=== PATIENT | male | born 1955 | race Caucasian/White ===

== ENCOUNTER → 2020-02-08 07:57 | Outpatient (BNVA) | payer MEDICARE, OTHER, SELFPAY | PROVIDERS: Absent Provider Urology; Family Provider Family Medicine; PCP Family Medicine; Visit Provider Urology | DX: N45.1 Epididymitis (principal); N48.6 Induration penis plastica | CPT/HCPCS: 81003 ==

== ENCOUNTER 2020-03-01 07:14 | Outpatient (CLI) | payer MEDICARE, OTHER, SELFPAY ==
--- NOTE | 2020-03-01 07:18 | US_ITS ---
WS: [id number] ULTRASOUND ABDOMEN CLINICAL INFORMATION: EPIGASTRIC PAIN COMPARISON: None. FINDINGS: Liver Size: Enlarged Craniocaudal length: 17.2 cm. Echogenicity: Normal. Surface nodularity: None. Mass (size and location): None. Bile ducts Intrahepatic ducts: Normal. Common bile duct diameter: 0.3 cm. Gallbladder Normal. Gallstones: None. Gallbladder sludge: None. Gallbladder wall thickening: None. Pericholecystic fluid: None. Sonographic Barbosa sign: Absent. Pancreas Normal as visualized. Spleen Splenomegaly: None. Craniocaudal length: 9.1 cm. Right kidney: Small simple renal cyst measuring 6 mm Hydronephrosis: None. Size: 12.9 cm x 6.4 cm x 6.3 cm Left kidney: Simple renal cyst measuring 1.6 x 1.4 cm. Additional smaller 11 mm renal cyst Hydronephrosis: None. Size: 13.2 cm x 5.1 cm x 6.3 cm. Abdominal aorta and IVC Visualized portions are normal. Umbilical hernia measuring 1.1 x 1.2 CCM. US/US abdomen complete* [id number] IMPRESSION: 1. Hepatomegaly. 2. Normal gallbladder. 3. No hydronephrosis in either kidney. Incidental small simple cysts bilateral ly. 4. Normal spleen. 5. Umbilical hernia measuring 1.1 x 1.2 CM. Recommend clinical correlation. Th is can be further evaluated with CT.
== END 2020-03-01 07:15 | disposition home or self-care (01) ==
PROVIDERS: PCP Family Medicine; Visit Provider Nurse Practitioner Family
DX: R10.13 Epigastric pain (principal); R07.9 Chest pain, unspecified; R16.0 Hepatomegaly, not elsewhere classified; K42.9 Umbilical hernia without obstruction or gangrene
CPT/HCPCS: 76700

== ENCOUNTER → 2020-07-18 08:01 | Outpatient (BNVA) | payer MEDICARE, OTHER, SELFPAY | PROVIDERS: PCP Family Medicine; Visit Provider Urology | DX: N45.1 Epididymitis (principal); N50.819 Testicular pain, unspecified; N48.6 Induration penis plastica | CPT/HCPCS: 81003 ==

== ENCOUNTER → 2021-07-21 13:02 | Outpatient (BNVA) | payer MEDICARE, OTHER, SELFPAY | PROVIDERS: PCP Family Medicine; Visit Provider Urology | DX: N48.6 Induration penis plastica (principal); Z12.5 Encounter for screening for malignant neoplasm of prostate; N50.819 Testicular pain, unspecified | CPT/HCPCS: 81003; G0103 ==

== ENCOUNTER 2022-06-20 03:21 | Inpatient (IN) | payer MEDICARE, OTHER, SELFPAY ==
[2022-06-20] VITALS (89 sets, daily range): BP systolic 57–157; BP diastolic 36–95; PULSE 31–103; RESP 10–30; TEMP 36.5–37.1; O2SAT 94–100; BMI 22.8; BMI 29.7
--- NOTE | 2022-06-20 03:33 | ECG_ITS ---
[facility] Test Date: 2022-06-20 Pat Name: Chau Jarquin Department: Room: Gender: Male Crimper Operator: : 1955 Requested By: Kirit Dougherty Order Number: [id number] Bruno MD: Parvez Salter M.D. Measurements Intervals [place] Rate: 72 P: 68 ID: [id number] QRS: 54 QRSD: 88 T: 87 QT: 376 QTc: 414 Interpretive Statements SINUS RHYTHM WITH FIRST DEGREE AV BLOCK LOW QRS VOLTAGE IN PRECORDIAL LEADS [QRS DEFLECTION < 1.0 mV IN CHEST LEADS] MARKED ST ELEVATION, CONSIDER INFERIOR INJURY [MARKED ST ELEVATION W/O NORMALLY INFLECTED T-WAVE IN II/aVF] ACUTE NC No previous ECG available for comparison Electronically Signed On 06-20-2022 15:24:25 CDT by Parvez Salter M.D. [email or web address]
--- NOTE | 2022-06-20 03:38 | XRR_ITS ---
PROCEDURE INFORMATION: Exam: XR Chest Exam date and time: 06/20/2022 3:47 AM Age: 67 years old Clinical indication: Pain; Chest pressure; Patient HX: Stemi; Additional info: Cp TECHNIQUE: Imaging protocol: Radiologic exam of the chest. Views: 1 view. COMPARISON: No relevant prior studies available. FINDINGS: Lungs: There is no consolidation. Pleural spaces: There is no pleural effusion or pneumothorax. Heart/Mediastinum: There is mild enlargement of the cardiac silhouette. Bones/joints: Bones are unremarkable. XR/XR chest 1V portable [id number] IMPRESSION: No acute findings.
--- NOTE | 2022-06-20 03:44 | W.ED.CHESTPA ---
HPI - Chest Pain General: Chief Complaint: Chest Pain Stated Complaint: CP, low bp Time Seen by Provider: 06/20/22 03:29 Source: patient and family History of Present Illness: 67-year-old gentleman with a history of diabetes and hypertension. He notes that he did not really feel well around 530 last evening. He had some chest discomfort, and fatigue. This seemed to improve, and he went out to his shop later the last night. He came in around 2 AM and reported to his that he felt like his blood sugar was low . He was tired, having some chest discomfort, and short of breath. He currently rates his discomfort as a 5. He notes that it is significantly improved from prior. MD complaint: chest discomfort Pertinent past history: other Onset (ago): hour(s) Timing of current episode: episodic Prior episodes: Yes Onset: during rest Pain location: substernal Pain radiation: none Quality: aching and heaviness Relieving factors: nothing Exacerbating factors: nothing Associated symptoms: Reports diaphoresis, dyspnea and nausea; Deny abdominal pain, fever(s), leg edema or vomiting Treatment prior to arrival: none Risk Factors: Coronary artery disease risk factors: diabetes and hypertension Review of Systems Const: Reports: diaphoresis; Denies: fever(s) Eyes: Denies: change in vision Card: Reports: chest pain Resp: Reports: dyspnea GI: Reports: nausea; Denies: abdominal pain or vomiting Skin/Breast: Denies: rash PFSH ED PFSH: Medical History DM2 (diabetes mellitus, type 2) Epididymal pain Epididymitis Erectile dysfunction HTN (hypertension) Peyronie's Disease Surgical History Hx of vasectomy Family History Other CAD (coronary artery disease) Cancer Hypertension Social History Smoking and tobacco status: never smoked Alcohol intake: current Alcohol intake frequency: few times a week Adopted: No Caregiver/support person: No Lives independently: No Household members: spouse Marital status: Current occupational status: retired Physical Exam Const: GENERAL APPEARANCE: cooperative, in distress and ill appearing HENMT: COMMON NORMALS: normocephalic, atraumatic and Normal external nose present HEAD & SCALP: normocephalic and atraumatic NOSE: Normal external nose present Eye: COMMON NORMALS: Equal, round and reactive pupils present and EOMs intact bilaterally PUPIL: Yes Equal, round and reactive pupils present Neck/C-Spine: GENERAL: Yes trachea midline Chest: COMMONS NORMALS: normal inspection of the chest CHEST: Yes Symmetrical chest wall rise Resp: COMMON NORMALS: normal respiratory effort, No use of accessory muscles and clear to auscultation bilaterally AUSCULTATION: clear to auscultation bilaterally Cardio: COMMON NORMALS: regular rhythm RATE: bradycardic RHYTHM: regular rhythm GI: COMMON NORMALS: Normal to inspection, nondistended, normoactive bowel sounds present, Soft to palpation and non-tender PALPATION: Yes Soft to palpation Extremity: COMMON NORMALS: no pedal edema Neuro: RICK COMA SCALE: document GCS findings Rick coma scale eye opening: Spontaneous [place] coma scale verbal response: Orientated Rick coma scale motor response: Obey commands Rick coma scale total score: 15 Skin: COMMON NORMALS: no rashes or lesions noted GENERAL SKIN EXAM: no rashes or lesions noted Course Consultations: Consultation #1: Gaetano Time: 03:36 Vital Signs: Vital signs: Vital Signs Temperature 98 F 06/20/22 03:29 Pulse Rate 68 06/20/22 03:29 Respiratory Rate 10 L 06/20/22 03:29 Blood Pressure 102/64 06/20/22 03:29 Pulse Oximetry 97 06/20/22 03:29 MDM - Chest Pain Medical Decision Making 67-year-old gentleman with chest discomfort. He was mildly hypotensive on arrival. He was ashen in color. ST elevation was noted on the monitor when triaging the patient. EKG was done showing a significant mainly inferior STEMI. STEMI alert was called immediately, and cardiology was consulted by phone. He came in to evaluate the patient. In the meantime, the patient became somewhat hypotensive. Blood pressure was as low as 60 systolic. The patient remained awake during these episodes. Fluid boluse was given. The patient became bradycardic as well, with a heart rate as low as 30. Pacer pads were attached per District Court Judge protocol, and transcutaneous pacing was started with decent capture. Again the patient remained awake. His chest pain was significantly improved. His color was somewhat improved. He was taken directly to District Court Judge. In the ER he was also given heparin 4000, Plavix 600, aspirin. Lab Data 06/20/22 03:40 06/20/22 03:40 Laboratory Results WBC 7.8 10^3/uL (4.0-10.0) 06/20/22 03:40 RBC 4.18 10^6/uL (4.1-5.3) 06/20/22 03:40 Hgb 13.8 g/dL (11.7-16.6) 06/20/22 03:40 Hct 39.1 % (42.0-52.0) L 06/20/22 03:40 MCV 93.5 fl (80-94) 06/20/22 03:40 MCH 33.0 pg (28.0-34.0) 06/20/22 03:40 MCHC 35.3 g/dL (30.0-36.0) 06/20/22 03:40 RDW 12.8 % (12.1-15.1) 06/20/22 03:40 Plt Count 199 10^3/cmm (130-400) 06/20/22 03:40 MPV 9.5 fL (7.4-10.4) 06/20/22 03:40 Neut % (Auto) 56.9 % 06/20/22 03:40 Lymph % (Auto) 27.7 % 06/20/22 03:40 Woodson % (Auto) 12.3 % 06/20/22 03:40 Eos % (Auto) 2.2 % 06/20/22 03:40 Baso % (Auto) 0.6 % 06/20/22 03:40 Neut # (Auto) 4.46 10^3/uL (1.8-7.7) 06/20/22 03:40 Lymph # (Auto) 2.2 10^3/uL (0.8-4.8) 06/20/22 03:40 Woodson # (Auto) 1.0 10^3/uL (0.2-0.9) H 06/20/22 03:40 Eos # (Auto) 0.2 10^3/uL (0.0-0.8) 06/20/22 03:40 Baso # (Auto) 0.1 10^3/uL (0.0-0.1) 06/20/22 03:40 Nucleated RBC % (auto) 0 % 06/20/22 03:40 Nucleated RBCs # 0.0 /100WBC 06/20/22 03:40 PT 13.50 SECONDS (12.1-14.9) 06/20/22 03:40 INR 1.00 (0.8-1.2) 06/20/22 03:40 APTT 22.3 SECONDS (23.9-36.7) L 06/20/22 03:40 Sodium 135 mmol/L (136-145) L 06/20/22 03:40 Potassium 3.7 mmol/L (3.5-5.1) 06/20/22 03:40 Chloride 98 mmol/L (98-107) 06/20/22 03:40 Carbon Dioxide 23 mmol/L (22-29) 06/20/22 03:40 Anion Gap 17.7 (5-19) 06/20/22 03:40 BUN 21 mg/dL (8-23) 06/20/22 03:40 Creatinine 1.2 mg/dL (0.7-1.2) 06/20/22 03:40 GFR Calculation 60.2 mL/min (90-130) L 06/20/22 03:40 Glucose 255 mg/dL (65-115) H 06/20/22 03:40 Calculated Osmolality 292 mOsm/kg (285-295) 06/20/22 03:40 Calcium 8.6 mg/dL (8.5-10.5) 06/20/22 03:40 Total Bilirubin 0.5 mg/dL (0.15-1.2) 06/20/22 03:40 AST 22 U/L (0-40) 06/20/22 03:40 ALT 14 U/L (0-41) 06/20/22 03:40 Alkaline Phosphatase 38 U/L (40-130) L 06/20/22 03:40 Creatine Kinase 160 U/L (39-308) 06/20/22 03:40 Troponin T Baseline 24 ng/L (0-15) H 06/20/22 03:40 Total Protein 6.6 g/dL (6.6-8.7) 06/20/22 03:40 Albumin 4.3 g/dL (3.5-5.2) 06/20/22 03:40 Globulin 2.3 g/dL (1.3-4.6) 06/20/22 03:40 Critical Care Time Critical Care Time: Critical Care Time: Yes Total Critical Care Time: 35 Attestation: This case had a high probability of a clinically significant, sudden, or life threatening deterioration of this patient's condition which required my full and direct attention, intervention and personal management. Time is independent of any procedures performed Discharge Plan Discharge Patient Disposition: Admitted As Inpatient Clinical Impression: ST elevation DE (STEMI), Chest pain Condition: Critical Coding Level of Care Code ED Patient Services Manager for Brett Elkins
[2022-06-20] MEDS: heparin 5,000 unit/mL INJ 1 mL 4000 UNIT IVP (03:48)
[2022-06-20] MEDS: aspirin 325 mg Tablet PO (03:48)
[2022-06-20] MEDS: clopidogrel 300 mg Tablet 600 MG PO (03:48)
[2022-06-20 03:49] LABS: Basophils # 0.1 10^3/uL (0.0-0.1); Basophils % 0.6 %; Eosinophils # 0.2 10^3/uL (0.0-0.8); Eosinophils % 2.2 %; Hematocrit 39.1 % (42.0-52.0); Hemoglobin 13.8 g/dL (11.7-16.6); Lymphocytes # 2.2 10^3/uL (0.8-4.8); Lymphocytes % 27.7 %; Mean Corpuscular HGB Conc 35.3 g/dL (30.0-36.0); Mean Corpuscular Volume 93.5 fl (80-94); Mean Platelet Volume 9.5 fL (7.4-10.4); Monocytes % 12.3 %; Neutrophils # 4.46 10^3/uL (1.8-7.7); Neutrophils % 56.9 %; Nucleated Red Blood Cells % 0 %; Platelet Count 199 10^3/cmm (130-400); Red Blood Count 4.18 10^6/uL (4.1-5.3); Red Cell Distribution Width 12.8 % (12.1-15.1); White Blood Count 7.8 10^3/uL (4.0-10.0)
[2022-06-20] MEDS: ondansetron 2 mg/ML SDV 2 mL 4 MG IVP (03:50)
[2022-06-20] MEDS: morphine 4 mg/mL SDV 1 mL 2 MG IVP (03:50)
[2022-06-20] MEDS: sodium chloride 0.9% 1,000 ML 999 ML IV ×2 (04:00→04:05)
[2022-06-20 04:03] LABS: Partial Thromboplastin Time 22.3 SECONDS (23.9-36.7)
--- NOTE | 2022-06-20 04:05 | XACV_ITS ---
Exam Room: .ROOM06 Ht: 173 cm Wt: 68 kg BSA: 1.81 m2 Gender: Male : 1955 Exam Priority: Routine Procedure(s): Procedure Description: Diagnostic procedure Procedure Description: PCI procedure Procedure Description: Drug Eluting Coronary Stent Procedure Description: PTCA Procedure Description: Coronary Angiography Diagnostic Cath Status: Emergency Diagnostic Findings * Left Main is very short, almost separate ostia for LAD and LCx. * Left Anterior Descending has diffuese luminal irregularities. No significant stenosis. * Circumflex has no significant disease. * Mid Right Coronary Artery: total thormbotic occlusion, SAMSON: 0 flow.This is the culprit vessel for STEMI. * Distal Right Coronary Artery: obstructive 70% stenosis, SAMSON: 3 flow. * Coronary angiography shows right dominance. PCI Status: Emergency PCI Indication: STEMI - Immediate PCI for STEMI Interventional Findings * PROCEDURE DETAIL: We engaged RCA with JR4 guide catheter. IV heparin was administered according to weight. 0.014 run-through guidewire was used to cross the total thrombotic occlusion in mid RCA. 2.5 x 12 mm semicompliant balloon was used to predilate the stenosis. This was followed by placement of 3.0 x 22 mm resolute Shweta drug-eluting stent. At this time we noticed distal RCA had about 70% stenosis. This was pretreated with 2.5 x 12 mm semicompliant balloon. We then placed 2.75 x 12 mm resolute Shweta drug-eluting stent in distal RCA. At this time final angiogram was performed that showed excellent stent expansion, no residual stenosis and SAMSON-3 flow. Guidewire and guide catheter were removed. Patient left the Bottom Brusher in a stable condition.. * Mid Right Coronary Artery: 100% stenosis treated with a AB TREK 2.50X12 RX BALLOON, and MDT R SHWETA 3.0X22 SUNIL. 0% residual stenosis, SAMSON: 3 flow. * Distal Right Coronary Artery: 70% stenosis treated with a AB TREK 2.50X12 RX BALLOON, and MDT R SHWETA 2.75X12 SUNIL. 0% residual stenosis, SAMSON: 3 flow. Conclusions 1. Total thrombotic occlusion of mid RCA. This is the culprit vessel for STEMI. Status post successful revascularization of RCA with SUNIL x2.. 2. Mid Right Coronary Artery was treated with a Balloon, and Drug Eluting Stent. 3. Distal Right Coronary Artery was treated with a Balloon, and Drug Eluting Stent. Recommendations * Dual antiplatelet therapy with aspirin and Plavix for at least 1 year. * High intensity statin therapy. * Order echocardiogram. * Transfer to ICU. Interventional RX Recommendation: PCI w/o planned CABG Diagnostic RX Recommendation: PCI w/o planned CABG Anticoagulation: Heparin Clinical Evaluation EBL: 5mL-10mL Procedural Details Pre-Procedure Time Out. Identified patient by full name and date of as verbalized by the patient/guarantor. Does the consent match the physician's order: N/A Emergent; Informed Consent not obtained due to time critical life threat. Accurate & Complete Informed Consent: N/A Emergent; Informed Consent not obtained due to time critical life threat. Inpatient/Outpatient History & Physical on Chart: N/A Emergent; Informed Consent not obtained due to time critical life threat. If H&P is completed, is and addenduem needed: N/A Emergent; Informed Consent not obtained due to time critical life threat; If yes, is the addendum complete: N/A Emergent; Informed Consent not obtained due to time critical life threat. Visualize and Verify Site with Patient/Guarantor: N/A. Relevant Radiology Images available: N/A. Pre-op teaching completed and patient verbalized understanding. The risks, benefits, and alternatives of sedation and/or procedure were discussed by physician. The patient agrees to continue. Procedure started. [facility] Clinical Fraility Score: 4: Vulnerable. [place] Indications: ACS <= 24 hours. Chest Pain Symptom Assessment: Typical Angina Symptoms. Cardiovascular Instability: Yes, if yes, Hemodynamic Instability. Cardiovascular Instability: Yes, if yes, Persistant Ischemic Symptoms. Correct patient, site and procedure confirmed by cath team. Current diagnosis: STEMI. PERRLA. Strong, equal hand billet header bilaterally. Lungs clear x 5 lobes. IV Site on Arrival: 20 gauge in the right hand. IV Site on Arrival: 20 gauge in the left anticubital. IV Fluids: 0.9% NaCl at KVO. mL infused prior to labor relations consultant. Oxygen started at 2liters/min via nasal canula. right groin was prepped with chloroprep then draped in the usual sterile fashion. Physician notified. Baseline sample Acquired. HR: 38 BPM. Patient arrived to labor relations consultant on a ventilator and will be managed by respiratiory. Physician arrived. Physician scrubbed in. Immediate Pre-Procedure Time Out. Correct Patient: N/A Emergent; Informed Consent not obtained due to time critical life threat; Correct Procedure: N/A Emergent; Informed Consent not obtained due to time critical life threat; Correct Site: N/A Emergent; Informed Consent not obtained due to time critical life threat; Correct Patient Position: N/A Emergent; Informed Consent not obtained due to time critical life threat; Correct Supplies: N/A Emergent; Informed Consent not obtained due to time critical life threat; Dried Flammable Prep: N/A Emergent; Informed Consent not obtained due to time critical life threat; Blood Products Available: N/A Emergent; Informed Consent not obtained due to time critical life threat;. Lidocaine 1% infiltrated to the right groin. Pt arrived to labor relations consultant with transcutaneous pacing. Arrived to lab with Levophed gtt running at 6mcg/min. Arterial access obtained with micropuncture set. Admit Source: Emergency department. 6 bahraini JR 4 guide catheter was inserted over the wire. Runthrough guidewire was advanced through the guide catheter to lesion in the mid RCA. Inflation number : 1 A AB TREK 2.50X12 RX BALLOON was prepped and advanced across the Mid RCA , then inflated to 8 LAUREN for 0:17 seconds. Inflation number: 2 The AB TREK 2.50X12 RX BALLOON was reinflated across the Mid RCA, to 8 LAUREN for 0:10 seconds. Balloon out. Inflation Number : 3 A HENRY Ford SHWETA 3.0X22 SUNIL -Lot Number#[id number] EXP 10-14-2023 was prepped and advanced across the Mid RCA. The stent was deployed at 12 LAUREN for 0:17 seconds. Stent balloon out over wire. Transcutaneous pacing stopped at this time. Stent inserted to lesion in the distal RCA. Unable to cross, Intact stent out over wire. Inflation number: 1 The AB TREK 2.50X12 RX BALLOON was reinflated across the Dist RCA, to 8 LAUREN for 0:12 seconds. Balloon out. Guideliner advanced over runthrough wire. Inflation Number : 2 Gigi Ford SHWETA 2.75X12 SUNIL -Lot Number#[id number] EXP 10-09-23 was prepped and advanced across the Dist RCA. The stent was deployed at 12 LAUREN for 0:16 seconds. Stent balloon out over wire. Guideliner out. Angiography performed, checking results. Runthrough wire out. A 5 bahraini JL4 catheter in over wire. Multiple views taken of left coronary artery. Post-op diagnosis: Total thrombotic occlusion of mid RCA, status post pci with 2 placement of 2 stents. A Suture was successful obtaining hemostatsis at the Right Femoral artery insertion site. Post Procedure: Pulses reassessed and unchanged. PERRLA. Strong, equal hand billet header bilaterally. No VTE prophylaxis required. Arterial sheath flushed and connected to tranducer and pressure bag with heparinized saline. Medication's Wasted: Other = Versed 1mg, Heparin 2000 units. Total IV fluids: 36 mL. PCI Indication: STEMI. Complications: None. Estimated blood loss: 5mL-10mL. Responsiveness - Normal response to verbal stimuli; alert and oriented, PERRLA. Airway - Unaffected, no intervention required; spontaneous ventilation. Circulation: W/N/L, pulses unchanged. Nausea/Vomiting: N/A. Procedure completed. Patient transferred by bed to ICU. Vital chart was stopped. Access Site Site: Right Femoral artery Sheath Size: 6 Fr Hemostasis Method: Suture Hemostasis Success: Successful Procedure Medications Start: 4:23 AM Stop: 4:23 AM Medication: Versed Amount: 1 mg Route: I.V. Start: 4:26 AM Stop: 4:26 AM Medication: Heparin Amount: 4000 units Route: I.V. Start: 4:36 AM Stop: 4:36 AM Medication: Heparin Amount: 1000 units Route: I.V. I, the attending physician, have reviewed and verified all procedure medications. Yes, all medications given per verbal order Report Signatures Finalized by Parvez Salter MD on 06/20/2022 05:26 AM
[2022-06-20 04:07] LABS: Alanine Aminotransferase 14 U/L (0-41); Albumin Level 4.3 g/dL (3.5-5.2); Alkaline Phosphatase 38 U/L (40-130); Anion Gap 17.7 (5-19); Aspartate Amino Transferase 22 U/L (0-40); Blood Urea Nitrogen 21 mg/dL (8-23); Calcium 8.6 mg/dL (8.5-10.5); Carbon Dioxide 23 mmol/L (22-29); Chloride 98 mmol/L (98-107); Creatine Phosphokinase 160 U/L (39-308); Globulin 2.3 g/dL (1.3-4.6); Glomerular Filtration Rate 60.2 mL/min (90-130); Glucose 255 mg/dL (65-115); Osmolality Calculated 292 mOsm/kg (285-295); Potassium 3.7 mmol/L (3.5-5.1); Sodium 135 mmol/L (136-145); Total Bilirubin 0.5 mg/dL (0.15-1.2); Total Protein 6.6 g/dL (6.6-8.7)
[2022-06-20 04:08] LABS: Troponin(5th) Baseline 24 ng/L (0-15)
--- NOTE | 2022-06-20 04:10 | PC.NURSE ---
Levo drip mixed and started per verbal order from Dr Del Rosario. Started at 6mcg/min
--- NOTE | 2022-06-20 04:14 | PM.HP ---
Providers/Chief Complaint Admitting Physician: Parvez Salter MD/ Interventional cardiology Primary Care Provider: Evelyne Shaffer NP Chief Complaint: Chest pain History of Present Illness Chau Jarquin is a 67 year old male with past medical history of diabetes and hypertension who was not feeling well since 5:30 PM yesterday. He had some chest discomfort and fatigue. The symptoms improved. Again started having significant symptoms at 2 AM about 2 hours prior to presentation to the hospital. Was significant chest discomfort, shortness of breath and fatigue. On arrival to the ER, he was found to have a inferior wall ST elevation IN. Cardiac Ski Patrol Director was emergently activated. On my evaluation he was in complete heart block with a heart rate dropping down to low 30s. He was started on transcutaneous pacing. We also started Levophed as he was significantly hypotensive. These improved hemodynamics. Review of Systems Const: Reports: diaphoresis; Denies: fever(s) Eyes: Denies: change in vision Card: Reports: chest pain Resp: Reports: dyspnea GI: Reports: nausea; Denies: abdominal pain or vomiting Skin/Breast: Denies: rash Medications/Allergies Home Medications Medication Instructions Recorded Confirmed Last Taken Type glipizide 5 mg tablet 2.5 mg PO BID 02/05/20 04/14/22 Unknown History losartan 50 mg tablet 50 mg PO BID 02/05/20 04/14/22 Unknown History metformin 1,000 mg tablet 1,000 mg PO BID 02/05/20 04/14/22 Unknown History chlorthalidone 50 mg tablet 50 mg PO DAILY 02/08/20 04/14/22 Unknown History omeprazole 40 mg capsule,delayed 40 mg PO DAILY 07/18/20 04/14/22 Unknown History release naproxen sodium 220 mg capsule 220 mg PO BID PRN 07/21/21 04/14/22 Unknown History (Aleve) sildenafil 100 mg tablet See Rx Instructions .Route 07/21/21 04/14/22 Unknown Rx .COMPLEX sexual activity #20 tabs vitamin E 200 unit capsule 200 unit PO DAILY 07/21/21 04/14/22 Unknown History Allergies Allergy/AdvReac Type Severity Reaction Status Date / Time No Known Allergies Allergy Unverified 04/14/22 18:15 PFSH Acute PFSH: Medical History DM2 (diabetes mellitus, type 2) Epididymal pain Epididymitis Erectile dysfunction HTN (hypertension) Peyronie's Disease Surgical History Hx of vasectomy Family History Other CAD (coronary artery disease) Cancer Hypertension Social History Smoking and tobacco status: never smoked Alcohol intake: current Alcohol intake frequency: few times a week Adopted: No Caregiver/support person: No Lives independently: No Household members: spouse Marital status: Current occupational status: retired Vitals/I&O/Wt Last Vital Signs Temp 98 F 06/20/22 03:29 Pulse 68 06/20/22 03:29 Resp 10 L 06/20/22 03:29 BP 102/64 06/20/22 03:29 Pulse Ox 97 06/20/22 03:29 Weight last 48 hrs Weight 150 lb Physical Exam Narrative: GENERAL: Patient is drowsy NECK: No jugular vein distension. [] HEENT: No cyanosis. No icterus. No pallor. [] HEART: Bradycardic, regular. LUNGS: Clear to auscultate bilaterally. [] CENTRAL NERVOUS SYSTEM: Grossly nonfocal. [] EXTREMITIES: Lower extremities with no edema. Data 06/20/22 03:40 06/20/22 03:40 A&P Assessment and plan (1) ST elevation IN (STEMI): Plan Patient has presented with acute ST patient has presented with acute inferior wall ST elevation IN and taken emergently to the cardiac Ski Patrol Director. He is currently externally paced. Levophed gtt started. Has been loaded with aspirin and Plavix. Will need to continue for at least 1 year Echocardiogram ordered He will be transferred to ICU later. Attestations Medical Necessity Statement*: Care expected to cross 2 midnights. Patient has presented with acute inferior wall ST elevation IN and going to animal laboratory technician for emergent cardiac cath with likely Percutaneous coronary intervention Coding Level of Care Code Acute Code for [facility] Diagnoses ST elevation IN (STEMI) I21.3
--- NOTE | 2022-06-20 05:26 | USCV_ITS ---
Chau Jarquin Age: 67 Gender: M : 1955 Exam Date: 06/20/2022 10:35 Ordering Phys: Parvez Salter M.D ([email or web address]) Technologist: LEONELA Exam Location: [facility] [place] Indication: stemi BP: / HR: 81 Rhythm: Sinus Technical Quality: Adequate MEASUREMENTS (Male / Female) Normal Values 2D ECHO LV Diastolic Diameter PLAX 4.3 cm 4.2 - 5.9 / 3.9 - 5.3 cm LV Systolic Diameter PLAX 2.9 cm IVS Diastolic Thickness 0.9 cm 0.6 - 1.0 / 0.6 - 0.9 cm IVS Systolic Thickness 1.1 cm LVPW Diastolic Thickness 0.9 cm 0.6 - 1.0 / 0.6 - 0.9 cm LVPW Systolic Thickness 1.2 cm LVOT Diameter 2.1 cm LV Ejection Fraction 2D Teich 62.0 % LV Ejection Fraction MOD 2C 65.0 % LV Ejection Fraction 2C AL 66.3 % LA Diameter 3.4 cm IVC Diameter 1.9 cm M-MODE Aortic Annulus Diameter 3.3 cm LA Ao Ratio MM 1.0 MV E Point Septal Separation 0.4 cm DOPPLER AV Peak Velocity 121.0 cm/s LVOT Peak Velocity 104.0 cm/s AV Area Cont Eq vti 2.6 cm squared AV Area Cont Eq pk 3.0 cm squared MV Area PHT 4.4 cm squared Mitral E to A Ratio 1.0 MV E' Velocity 61.0 cm/s Mitral E to MV E' Ratio 11.2 Mitral E to LV E' Lateral Ratio 9.1 Mitral E to LV E' Septal Ratio 14.9 TR Peak Velocity 230.0 cm/s TR Peak Gradient 21.2 mmHg TV Peak E Velocity 63.0 cm/s Right Atrial Pressure 3.0 mmHg Pulmonary Artery Systolic Pressu 24.2 mmHg PV Peak Velocity 98.0 cm/s FINDINGS Left Ventricle Left ventricle is normal in size. LV systolic function is normal with EF of 60 to 65%. No regional wall motion abnormalities are seen. Right Ventricle Normal in size and function Right Atrium Normal in size Left Atrium Normal in size. Mitral Valve Structurally normal mitral valve. Mild mitral regurgitation. Aortic Valve Structurally normal aortic valve. No significant aortic stenosis regurgitation. Tricuspid Valve Mild tricuspid regurgitation. Pulmonary artery systolic pressure is normal Pulmonic Valve Not well visualized. Pericardium Normal in size Aorta Normal in size IVC Appears to be normal CONCLUSIONS LV systolic function is normal with EF of 60-65% Mild mitral regurgitation. Mild tricuspid regurgitation No comparison studies are available. Parvez Salter MD (Electronically Signed) Final Date: 20 June 2022 11:25 S
[2022-06-20 05:30] LABS: Partial Thromboplastin Time > 250.0 SECONDS (23.9-36.7)
--- NOTE | 2022-06-20 05:38 | ECG_ITS ---
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 Measurements Intervals [place] Rate: 85 P: 73 MN: 232 QRS: 1 QRSD: 93 T: 76 QT: 380 QTc: 454 Interpretive Statements SINUS RHYTHM WITH FIRST DEGREE AV BLOCK ANTEROSEPTAL MYOCARDIAL INFARCTION , PROBABLY OLD [40+ ms Q WAVE IN V1-V4] Compared to ECG 06/20/2022 03:33:45 ST (T wave) deviation no longer present Myocardial infarct finding still present Electronically Signed On 06-20-2022 15:25:19 CDT by Parvez Salter M.D. [id number]
[2022-06-20] MEDS: sodium chloride 0.9% 1,000 ML 100 ML IV (05:49)
--- NOTE | 2022-06-20 05:50 | PC.NURSE ---
Pt arrived to ICU 3 from botany laboratory assistant @0500. Continuos monitoring initiated. Pt reporting bilateral shoulder pain 5/10. See Post Cardiac Cath Flowsheet for R. groin site assessments. No other skin issues noted. Family @bedside, family stats that she took his belongings to the car. Levophed running, see MAR for titration.
[2022-06-20 07:31] LABS: Glucose Point of Care 246 mg/dL (70-110)
[2022-06-20 08:25] LABS: Partial Thromboplastin Time 105.6 SECONDS (23.9-36.7)
[2022-06-20] MEDS: clopidogrel 75 mg Tablet PO (08:38)
[2022-06-20] MEDS: aspirin 81 mg EC Tablet PO (08:38)
[2022-06-20] MEDS: insulin lispro 100 unit/1 mL SUBCUT ×4 (08:38→21:53)
[2022-06-20 08:53] LABS: Troponin 5 2HR 159.4 ng/L (0-15); Troponin 5 2HR Delta 135.4 ABS# (0-10)
[2022-06-20 10:27] LABS: Troponin 5 6HR 261.3 ng/L (0-15); Troponin 5 6HR Delta 237.3 ng/L (0-12)
--- NOTE | 2022-06-20 11:49 | ECG_ITS ---
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 Measurements Intervals [place] Rate: 75 P: 59 LA: 199 QRS: 8 QRSD: 92 T: 34 QT: 361 QTc: 404 Interpretive Statements SINUS RHYTHM LOW QRS VOLTAGE IN PRECORDIAL LEADS [QRS DEFLECTION < 1.0 mV IN CHEST LEADS] Compared to ECG 06/20/2022 05:41:57 Low QRS voltage now present First degree AV block no longer present Myocardial infarct finding no longer present Electronically Signed On 06-20-2022 15:24:56 CDT by Parvez Salter M.D. [id number]
[2022-06-20 13:19] LABS: Glucose Point of Care 169 mg/dL (70-110)
[2022-06-20 14:23] LABS: Partial Thromboplastin Time 26.7 SECONDS (23.9-36.7)
[2022-06-20 18:58] LABS: Glucose Point of Care 166 mg/dL (70-110)
[2022-06-20 21:48] LABS: Glucose Point of Care 204 mg/dL (70-110)
[2022-06-21] VITALS (40 sets, daily range): BP systolic 100–157; BP diastolic 57–97; PULSE 70–99; RESP 13–25; TEMP 36.6–37.1; O2SAT 89–96; BMI 29.6
[2022-06-21 04:52] LABS: Basophils % 0.6 %; Eosinophils # 0.1 10^3/uL (0.0-0.8); Eosinophils % 2.1 %; Hematocrit 39.7 % (42.0-52.0); Hemoglobin 13.8 g/dL (11.7-16.6); Lymphocytes # 1.7 10^3/uL (0.8-4.8); Mean Corpuscular HGB Conc 34.8 g/dL (30.0-36.0); Mean Corpuscular Hemoglobin 32.8 pg (28.0-34.0); Mean Corpuscular Volume 94.3 fl (80-94); Mean Platelet Volume 9.4 fL (7.4-10.4); Monocytes # 0.8 10^3/uL (0.2-0.9); Monocytes % 12.1 %; Neutrophils # 4.06 10^3/uL (1.8-7.7); Neutrophils % 60.1 %; Nucleated Red Blood Cells % 0 %; Platelet Count 184 10^3/cmm (130-400); Red Blood Count 4.21 10^6/uL (4.1-5.3); Red Cell Distribution Width 13.2 % (12.1-15.1); White Blood Count 6.8 10^3/uL (4.0-10.0)
[2022-06-21 05:12] LABS: Anion Gap 13.8 (5-19); Blood Urea Nitrogen 15 mg/dL (8-23); Carbon Dioxide 24 mmol/L (22-29); Chloride 103 mmol/L (98-107); Glomerular Filtration Rate 83.9 mL/min (90-130); Glucose 188 mg/dL (65-115); Osmolality Calculated 290 mOsm/kg (285-295); Potassium 3.8 mmol/L (3.5-5.1); Sodium 137 mmol/L (136-145)
--- NOTE | 2022-06-21 09:22 | P.DS_ITS ---
Discharge Providers Date of Admission: 06/20/22 05:06 Date of Discharge: June 21, 2022 Attending Provider at Admission: Parvez Salter M.D Attending Provider at Discharge: Parvez Salter M.D Primary Care Provider: Evelyne Shaffer NP Diagnoses at Discharge Discharge Diagnosis (1) ST elevation PR (STEMI): Status: Inactive Reason for Visit Reason for Visit: Chest pain Brief History: ?67 year old male with past medical history of diabetes and hypertension who was not feeling well since 5:30 PM yesterday.? He had some chest discomfort and fatigue.? The symptoms improved.? Again started having significant symptoms at 2 AM about 2 hours prior to presentation to the hospital.? Was significant chest discomfort, shortness of breath and fatigue.? On arrival to the ER, he was found to have a inferior wall ST elevation PR.? Cardiac [employer] was emergently activated. On my evaluation he was in complete heart block with a heart rate dropping down to low 30s.? He was started on transcutaneous pacing.? We also started Levophed as he was significantly hypotensive.? These improved hemodynamics. Hospital Course Hospital Course Cardiac catheterization showed total thrombotic occlusion of RCA. This was culprit for ST elevation PR. Underwent successful revascularization with SUNIL x2. Echo showed normal LV systolic function. Patient stayed stable in the hospital. He was discharged home on dual antiplatelet therapy. Physical Exam Narrative: GENERAL: Patient is alert, awake and oriented x3. [] NECK: No jugular vein distension. [] HEENT: No cyanosis. No icterus. No pallor. [] HEART: Regular S1 and S2. No murmur, rub or gallop. [] LUNGS: Clear to auscultate bilaterally. [] CENTRAL NERVOUS SYSTEM: Grossly nonfocal. [] EXTREMITIES: Lower extremities with no edema Discharge Data Studies Completed and Pending Completed Studies During Hospitalization Category Date Time Status MEDICAL EQUIPMENT SALES request for service Stat Exams 06/20/22 04:05 Completed XR chest 1V portable [id number] Stat Exams 06/20/22 03:38 Completed CV. echo complete* [id number] Routine Ultrasound 06/20/22 05:26 Completed Pending at discharge Category Date Time Status Basic Metabolic Panel AM LABS Lab 06/22/22 04:00 Ordered Basic Metabolic Panel AM LABS Lab 06/23/22 04:00 Ordered Complete Blood Count w/Auto AM LABS Lab 06/22/22 04:00 Ordered Complete Blood Count w/Auto AM LABS Lab 06/23/22 04:00 Ordered Radiology Impressions Chest X-Ray 06/20/22 03:38 IMPRESSION: No acute findings. Laboratory Results WBC 6.8 10^3/uL (4.0-10.0) 06/21/22 04:12 RBC 4.21 10^6/uL (4.1-5.3) 06/21/22 04:12 Hgb 13.8 g/dL (11.7-16.6) 06/21/22 04:12 Hct 39.7 % (42.0-52.0) L 06/21/22 04:12 MCV 94.3 fl (80-94) H 06/21/22 04:12 MCH 32.8 pg (28.0-34.0) 06/21/22 04:12 MCHC 34.8 g/dL (30.0-36.0) 06/21/22 04:12 RDW 13.2 % (12.1-15.1) 06/21/22 04:12 Plt Count 184 10^3/cmm (130-400) 06/21/22 04:12 MPV 9.4 fL (7.4-10.4) 06/21/22 04:12 Neut % (Auto) 60.1 % 06/21/22 04:12 Lymph % (Auto) 25.0 % 06/21/22 04:12 [place] % (Auto) 12.1 % 06/21/22 04:12 Eos % (Auto) 2.1 % 06/21/22 04:12 Baso % (Auto) 0.6 % 06/21/22 04:12 Neut # (Auto) 4.06 10^3/uL (1.8-7.7) 06/21/22 04:12 Lymph # (Auto) 1.7 10^3/uL (0.8-4.8) 06/21/22 04:12 [place] # (Auto) 0.8 10^3/uL (0.2-0.9) 06/21/22 04:12 Eos # (Auto) 0.1 10^3/uL (0.0-0.8) 06/21/22 04:12 Baso # (Auto) 0.0 10^3/uL (0.0-0.1) 06/21/22 04:12 Nucleated RBC % (auto) 0 % 06/21/22 04:12 Nucleated RBCs # 0.0 /100WBC 06/21/22 04:12 PT 13.50 SECONDS (12.1-14.9) 06/20/22 03:40 INR 1.00 (0.8-1.2) 06/20/22 03:40 APTT 26.7 SECONDS (23.9-36.7) D 06/20/22 13:27 Sodium 137 mmol/L (136-145) 06/21/22 04:12 Potassium 3.8 mmol/L (3.5-5.1) 06/21/22 04:12 Chloride 103 mmol/L (98-107) 06/21/22 04:12 Carbon Dioxide 24 mmol/L (22-29) 06/21/22 04:12 Anion Gap 13.8 (5-19) 06/21/22 04:12 BUN 15 mg/dL (8-23) 06/21/22 04:12 Creatinine 0.9 mg/dL (0.7-1.2) 06/21/22 04:12 GFR Calculation 83.9 mL/min (90-130) L 06/21/22 04:12 Glucose 188 mg/dL (65-115) H 06/21/22 04:12 POC Glucose 204 mg/dL (70-110) H 06/20/22 21:41 Calculated Osmolality 290 mOsm/kg (285-295) 06/21/22 04:12 Calcium 9.0 mg/dL (8.5-10.5) 06/21/22 04:12 Total Bilirubin 0.5 mg/dL (0.15-1.2) 06/20/22 03:40 AST 22 U/L (0-40) 06/20/22 03:40 ALT 14 U/L (0-41) 06/20/22 03:40 Alkaline Phosphatase 38 U/L (40-130) L 06/20/22 03:40 Creatine Kinase 160 U/L (39-308) 06/20/22 03:40 Troponin T Baseline 24 ng/L (0-15) H 06/20/22 03:40 Troponin T 120 Minute 159.4 ng/L (0-15) H 06/20/22 07:15 Delta Troponin T 135.4 ABS# (0-10) H* 06/20/22 07:15 Troponin T Hi Sens 6Hr 261.3 ng/L (0-15) H 06/20/22 09:20 Troponin T Hi Sens 6Hr Delta 237.3 ng/L (0-12) H* 06/20/22 09:20 Total Protein 6.6 g/dL (6.6-8.7) 06/20/22 03:40 Albumin 4.3 g/dL (3.5-5.2) 06/20/22 03:40 Globulin 2.3 g/dL (1.3-4.6) 06/20/22 03:40 Vitals Last Vital Signs Temp 98.8 F 06/21/22 04:00 Pulse 71 06/21/22 06:00 Resp 17 06/21/22 06:00 BP 137/77 06/21/22 06:00 Pulse Ox 95 06/21/22 06:00 O2 Del Method 06/21/22 04:00 Discharge Plan Discharge Patient Disposition: Home Condition: Stable Prescriptions: New pantoprazole 40 mg tablet,delayed release (DR/EC) 40 mg PO DAILY Qty: 60 0RF aspirin 81 mg capsule 81 mg PO DAILY Qty: 90 1RF clopidogrel 75 mg tablet 75 mg PO DAILY Qty: 90 3RF metoprolol tartrate 25 mg tablet 25 mg PO BID Qty: 120 2RF atorvastatin 40 mg tablet 40 mg PO QPM Qty: 90 3RF Continued vitamin E 200 unit capsule 200 unit PO DAILY sildenafil 100 mg tablet See Rx Instructions .Route .COMPLEX Qty: 20 12RF Rx Instructions: 1/2 TO 1 TAB 1 hour before intercourse, take on empty stomach, NO NITROGLYCERIN glipizide 5 mg tablet 2.5 mg PO BID losartan 50 mg tablet 50 mg PO BID Changed chlorthalidone 50 mg tablet 25 mg PO DAILY Qty: 60 0RF Held metformin 1,000 mg tablet 1,000 mg PO BID Hold Instructions: Resume on 06/22/22. Discontinued naproxen sodium [Aleve] 220 mg capsule 220 mg PO BID PRN (Reason: Pain) omeprazole 40 mg capsule,delayed release(DR/EC) 40 mg PO DAILY Discharge Orders: Discharge Order (Routine); Ordered 06/21/22 Ordered By: Parvez Salter Referrals: Evelyne Shaffer NP [Primary Care Provider] - Parvez Salter M.D [Physician] - 2 months Roxane Chopra FNP [Nurse Practitioner] - 7-10 days Discharge Diet: Cardiac and Diabetic Discharge Activity: Increase activity as tolerated Patient Instructions: Metoprolol (By mouth), Aspirin (By mouth), Atorvastatin (By mouth), Clopidogrel (By mouth), Pantoprazole (By mouth), Coronary Angioplasty (DC), Heart Healthy Diet (DC), Meal Planning with Diabetes Exchanges (DC), Opioid Safety Discharge Attestations Time Spent in Discharge Care*: greater than 30 min Quality Metrics Clinical Quality Measures [ Acute Myocardial Infaction { Clinical Trial Participant: No; Contraindication to aspirin: None; Aspirin prescribed; Contraindication to statin: None; Statin prescribed; Contraindication to PCI: None; PCI performed;}] Coding Level of Care Code Acute Code for [facility] Diagnoses ST elevation PR (STEMI) I21.3
[2022-06-21] MEDS: insulin lispro 100 unit/1 mL SUBCUT (09:29)
[2022-06-21] MEDS: clopidogrel 75 mg Tablet PO (09:36)
[2022-06-21] MEDS: aspirin 81 mg EC Tablet PO (09:36)
[2022-06-21] MEDS: metoprolol tartrate 25 mg Tablet PO (09:36)
[2022-06-21 11:19] LABS: Glucose Point of Care 180 mg/dL (70-110)
== END 2022-06-21 11:15 | disposition home or self-care (01) | DRG 247 ==
LOC: ER 03:38 → CCL 03:45 → ICU 05:06
PROVIDERS: Admitting Provider Internal Medicine; Emergency Provider Emergency Medicine; PCP Nurse Practitioner Family; Visit Provider Internal Medicine
PROC: 027035Z Dilation of Coronary Artery, One Artery with Two Drug-eluting Intraluminal Devices, Percutaneous Approach (ICD-10-PCS; principal; 2022-06-20 04:00)
PROC: 027035Z Dilation of Coronary Artery, One Artery with Two Drug-eluting Intraluminal Devices, Percutaneous Approach (ICD-10-PCS; 2022-06-20 04:00)
DX: I21.11 ST elevation (STEMI) myocardial infarction involving right coronary artery (principal); I25.10 Atherosclerotic heart disease of native coronary artery without angina pectoris; E11.9 Type 2 diabetes mellitus without complications; I10 Essential (primary) hypertension; Z79.84 Long term (current) use of oral hypoglycemic drugs
CPT/HCPCS: 36415; 36416; 71045; 80048; 80053; 82550; 82962; 84484; 85025; 85610; 85730; 93005; 93306; 93454; 96365; 96372; 96374; 96375; 96376; 99152; 99153; 99291; C1725; C1769; C1874; C1887; C1894; C9600; J0461; J1644; J1815; J2250; J2270; J2405; J3010; J7030; Q9967

== ENCOUNTER → 2022-07-02 08:57 | Outpatient (BNVA) | payer MEDICARE, OTHER, SELFPAY | PROVIDERS: PCP Nurse Practitioner Family; Visit Provider Nurse Practitioner Family | DX: I25.10 Atherosclerotic heart disease of native coronary artery without angina pectoris (principal); I10 Essential (primary) hypertension; I25.2 Old myocardial infarction; Z79.82 Long term (current) use of aspirin | CPT/HCPCS: 36415; 80048; 99214 ==

== ENCOUNTER → 2022-07-21 10:19 | Outpatient (BNVA) | payer MEDICARE, OTHER, SELFPAY | PROVIDERS: PCP Nurse Practitioner Family; Visit Provider Urology | DX: N52.9 Male erectile dysfunction, unspecified (principal); N50.819 Testicular pain, unspecified; N48.6 Induration penis plastica | CPT/HCPCS: 81003; 99213 ==

== ENCOUNTER → 2022-09-10 12:47 | Outpatient (BNVA) | payer MEDICARE, OTHER, SELFPAY | PROVIDERS: PCP Nurse Practitioner Family; Visit Provider Internal Medicine | DX: I25.10 Atherosclerotic heart disease of native coronary artery without angina pectoris (principal); I10 Essential (primary) hypertension; E11.9 Type 2 diabetes mellitus without complications; Z79.84 Long term (current) use of oral hypoglycemic drugs | CPT/HCPCS: 99214 ==

== ENCOUNTER → 2022-11-20 13:26 | Outpatient (BNVA) | payer MEDICARE, OTHER, SELFPAY | PROVIDERS: PCP Nurse Practitioner Family; Visit Provider Surgery | DX: Z12.11 Encounter for screening for malignant neoplasm of colon (principal) | CPT/HCPCS: 99024; 99203 ==

== ENCOUNTER → 2023-03-18 14:31 | Outpatient (BNVA) | payer MEDICARE, OTHER, SELFPAY | PROVIDERS: PCP Nurse Practitioner Family; Visit Provider Internal Medicine | DX: I25.10 Atherosclerotic heart disease of native coronary artery without angina pectoris (principal); I10 Essential (primary) hypertension; E11.9 Type 2 diabetes mellitus without complications; Z79.84 Long term (current) use of oral hypoglycemic drugs | CPT/HCPCS: 99214 ==

== ENCOUNTER 2023-05-20 07:32 | Outpatient (CLI) | payer MEDICARE, OTHER, SELFPAY ==
--- NOTE | 2023-05-20 07:37 | USCV_ITS ---
MilkaChau wang Age: 68 Gender: M : 1955 Exam Date: 05/20/2023 07:51 Ordering Phys: Evelyne Shaffer NP Technologist: Magnus Camarena Exam Location: [facility] [place] Indication: Screening. Hx of nicotine use HISTORY: Diameter (cm) AP x Transverse x Length Velocity (cm/s) Waveform Prox Aorta: 1.70 x 2.00 x 89.90 Triphasic Mid Aorta: 1.30 x 1.50 x 112.80 Triphasic Distal Aorta: 1.40 x 1.60 x 82.00 Triphasic Right Iliac Prox: 0.80 x 1.10 x 121.90 Triphasic Left Iliac Prox: 0.90 x 1.10 x 115.20 Triphasic Stent Prox Landing x x Aneurysmal Sac Max x x Lt Lat Sac Dim Rt Lat Sac Dim Stent Dist Landing x x Right Iliac Stent x x Left Iliac Stent x x Right Renal Art Left Renal Art FINDINGS: CONCLUSIONS No evidence of abdominal aortic or bilateral iliac aneurysm. Nelson Hager MD (Electronically Signed) Final Date: 20 May 2023 10:21 S
== END 2023-05-20 07:33 | disposition home or self-care (01) ==
LOC: RAD 07:33
PROVIDERS: PCP Nurse Practitioner Family; Visit Provider Nurse Practitioner Family
DX: Z13.6 Encounter for screening for cardiovascular disorders (principal); I10 Essential (primary) hypertension; Z87.891 Personal history of nicotine dependence
CPT/HCPCS: 76706

== ENCOUNTER → 2023-06-02 09:31 | Outpatient (BNVA) | payer MEDICARE, OTHER, SELFPAY | PROVIDERS: PCP Nurse Practitioner Family; Visit Provider Surgery | DX: Z12.11 Encounter for screening for malignant neoplasm of colon (principal) | CPT/HCPCS: 99024; 99214 ==

== ENCOUNTER 2023-09-09 09:44 | Day surgery (SDC) | payer MEDICARE, OTHER, SELFPAY ==
[2023-09-09 10:06] VITALS: BP 109/61; PULSE 59; RESP 18; TEMP 36.6; O2SAT 98; BMI 28.1
[2023-09-09 10:16] LABS: Glucose Point of Care 162 mg/dL (70-110)
[2023-09-09] MEDS: sodium chloride 0.9% 1,000 ML 30 ML IV (10:20)
--- NOTE | 2023-09-09 10:23 | ANES.PREANE2 ---
Pre-Anesthetic Assessment Height/Weight: Height 1.73 m Weight 83.915 kg Temp Pulse Resp BP Pulse Ox O2 Del Method 97.8 F 59 L 18 109/61 98 Room Air 09/09/23 10:09/09/23 10:09/09/23 10:06 09/09/23 10:06 09/09/23 10:09/09/23 10:06 Preop Diagnosis: screening Operation Date: 09/09/23 10:50 Proposed Procedures p 70853 colon G0121 screen colon A risk Z12.11(Not Applicable) - Femi Cedeño MD Familial anesthetic complications: none Was Beta Valentina taken within 24 hours: Yes Was Clonidine taken within 24 hours: N/A Last intake: Intake Last Liquid Date 09/08/23 Last Liquid Time 23:30 Last Solid Date 09/07/23 Last Solid Time 10:30 Social No alcohol and No tobacco Exam alert, oriented x 3 and regular rate & rhythm Airway Mallampati: Class I Dentition: full History/ROS No significant history except as noted Pulmonary bronchitis around 3 weeks ago, states he is feeling back to baseline now. CV/HEM Coronary Artery Disease (STEMI 2022, NO CARDIAC ISSUES SINCE) and Hypertension None reported Hepatic None reported GI None reported Metabolic Diabetes Mellitus [facility] [place] None reported Neuropsych None reported Anesthetic Plan ASA status: 3 Anesthesia: Anesthesia Evaluation and MAC Risk of > 500 ml blood loss (7ml/kg in children): No Medications/Allergies Home Medications Medication Instructions Recorded Confirmed Last Taken Type glipizide 5 mg tablet 2.5 mg PO BID 02/05/20 09/08/23 09/08/23 History losartan 50 mg tablet 50 mg PO BID 02/05/20 09/08/23 09/08/23 History metformin 1,000 mg tablet 1,000 mg PO BID 02/05/20 09/08/23 09/08/23 History vitamin E 200 unit capsule 200 unit PO DAILY 07/21/21 09/08/23 09/02/23 History aspirin 81 mg capsule 81 mg PO DAILY #90 caps 06/21/22 09/08/23 09/06/23 Rx chlorthalidone 50 mg tablet 25 mg (1/2 x 50 mg) PO DAILY #60 06/21/22 09/08/23 09/08/23 Rx tabs Calcium/mag/zinc 1 tab PO DAILY 07/02/22 09/08/23 09/02/23 History cinnamon bark 500 mg capsule 500 mg PO DAILY 07/02/22 09/08/23 09/02/23 History multivitamin 1 tab PO DAILY 07/02/22 09/08/23 09/02/23 History saw palmetto 160 mg capsule 160 mg PO DAILY 07/02/22 09/08/23 09/02/23 History tadalafil 20 mg tablet 20 mg PO DAILY PRN sexual activity 07/21/22 09/09/23 6 Months Ago Rx #20 tabs ~03/10/23 atorvastatin 40 mg tablet 40 mg PO QPM 09/08/23 09/08/23 09/08/23 History clopidogrel 75 mg tablet 75 mg PO DAILY 09/08/23 09/08/23 09/03/23 History metoprolol tartrate 25 mg tablet 25 mg PO DAILY 09/08/23 09/08/23 09/09/23 08:30 History Allergies Allergy/AdvReac Type Severity Reaction Status Date / Time No Known Allergies Allergy Verified 09/08/23 11:07 Current Medications Generic Name Dose Route Start Last Admin Trade Name Freq PRN Reason Stop Dose Admin Sodium Chloride 1,000 mls @ 30 mls/hr 09/09/23 10:00 09/09/23 10:20 Sodium Chloride 0.9% IV 30 mls/hr .Q24H TREVA Administration PFSH Anesthesia Medical History (Updated 06/02/23 @ 09:[address]) Atherosclerosis of coronary artery HTN (hypertension) ST elevation PR (STEMI) Peyronie's Disease Epididymal pain Epididymitis Erectile dysfunction DM2 (diabetes mellitus, type 2) Surgical History S/P right coronary artery (RCA) stent placement Hx of vasectomy Family History Other CAD (coronary artery disease) Cancer Hypertension Social History Smoking and tobacco/nicotine status: never used tobacco/nicotine Alcohol intake: current Alcohol intake frequency: few times a week Substance/Drug Use: never Adopted: No Caregiver/support person: No Lives independently: No Household members: spouse Marital status: Current occupational status: retired Data Anesthesia Cardiac Studies: Echocardiogram 06/20/22
--- NOTE | 2023-09-09 10:25 | W.PM.OPSFHP ---
Same Day Surgery H&P Indication for Procedure/HPI DATE OF PROCEDURE: September 09, 2023 CHIEF COMPLAINT/INDICATIONFOR SURGICAL PROCEDURE: need for screening colonoscopy PREOP DIAGNOSIS: need for screening colonoscopy PLANNED PROCEDURE: Operation Date: 09/09/23 10:50 Proposed Procedures p 18771 colon G0121 screen colon A risk Z12.11(Not Applicable) - Femi Cedeño MD Medications/Allergies* Home Medications Medication Instructions Recorded Confirmed Type glipizide 5 mg tablet 2.5 mg PO BID 02/05/20 09/08/23 History losartan 50 mg tablet 50 mg PO BID 02/05/20 09/08/23 History metformin 1,000 mg tablet 1,000 mg PO BID 02/05/20 09/08/23 History vitamin E 200 unit capsule 200 unit PO DAILY 07/21/21 09/08/23 History Calcium/mag/zinc 1 tab PO DAILY 07/02/22 09/08/23 History cinnamon bark 500 mg capsule 500 mg PO DAILY 07/02/22 09/08/23 History multivitamin 1 tab PO DAILY 07/02/22 09/08/23 History saw palmetto 160 mg capsule 160 mg PO DAILY 07/02/22 09/08/23 History atorvastatin 40 mg tablet 40 mg PO QPM 09/08/23 09/08/23 History clopidogrel 75 mg tablet 75 mg PO DAILY 09/08/23 09/08/23 History metoprolol tartrate 25 mg tablet 25 mg PO DAILY 09/08/23 09/08/23 History Allergies/Adverse Reactions Allergy/AdvReac Type Severity Reaction Status Date / Time No Known Allergies Allergy Verified 09/08/23 11:07 Current Medications: Generic Name Dose Route Start Last Admin Trade Name Freq PRN Reason Stop Dose Admin Sodium Chloride 1,000 mls @ 30 mls/hr 09/09/23 10:00 09/09/23 10:20 Sodium Chloride 0.9% IV 30 mls/hr .Q24H TREVA Administration Pertinent History/Comorbid Conditions* Medical History (Updated 09/10/22 @ 13:31 by Parvez Salter M.D) Atherosclerosis of coronary artery HTN (hypertension) ST elevation MT (STEMI) Peyronie's Disease Epididymal pain Epididymitis Erectile dysfunction DM2 (diabetes mellitus, type 2) Surgical History (Updated 07/02/22 @ 09:12 by LILY Henderson) S/P right coronary artery (RCA) stent placement Hx of vasectomy Family History (Updated 02/05/20 @ 14:39 by SARAVANAN Alan) CAD (coronary artery disease) Cancer Hypertension Social History Smoking and tobacco/nicotine status: never used tobacco/nicotine Alcohol intake: current Alcohol intake frequency: few times a week Substance/Drug Use: never Adopted: No Caregiver/support person: No Lives independently: No Household members: spouse Marital status: Current occupational status: retired Pertinent Exam Findings alert, oriented x 3, clear to auscultation bilaterally and regular rate & rhythm Recommendations Surgery/Procedure today Coding Level of Care Code Acute Code for Chg Fwd
--- NOTE | 2023-09-09 10:34 | ECG_ITS ---
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 Measurements Intervals [place] Rate: 51 P: 11 HI: 191 QRS: -13 QRSD: 86 T: 6 QT: 421 QTc: 389 Interpretive Statements SINUS BRADYCARDIA INFERIOR MYOCARDIAL INFARCTION , PROBABLY OLD [40+ ms Q WAVE AND/OR ST/T ABNORMALITY IN II/aVF] Compared to ECG 06/20/2022 11:49:19 Myocardial infarct finding now present Sinus rhythm no longer present Electronically Signed On 09-09-2023 22:09:15 CDT by Reina Lord M.D. [id number]
[2023-09-09 11:04] VITALS: BP 96/55; PULSE 54; RESP 16; TEMP 36.4; O2SAT 94
--- NOTE | 2023-09-09 11:07 | ANE.PACU2 ---
Inpatient post-anesthesia follow up: Airway intact: Yes Vital signs: Temperature 97.5 F Pulse Rate 54 Respiratory Rate 16 Blood Pressure 96/55 Pulse Oximetry 97 Oxygen Delivery Me thod Room Air Oxygen Flow Rate Fraction of Inspir ed Oxygen Hydration adequate: Yes Nausea and vomiting: No Pain level: 0 Mental status: Baseline
[2023-09-09 11:21] VITALS: BP 102/68; PULSE 55; RESP 18; O2SAT 96
== END 2023-09-09 11:34 | disposition home or self-care (01) ==
PROVIDERS: PCP Nurse Practitioner Family; Visit Provider Surgery
PROC: 0DJD8ZZ Inspection of Lower Intestinal Tract, Via Natural or Artificial Opening Endoscopic (ICD-10-PCS; CPT 45378; principal; 2023-09-09 10:50)
DX: Z12.11 Encounter for screening for malignant neoplasm of colon (principal); D12.5 Benign neoplasm of sigmoid colon; K57.30 Diverticulosis of large intestine without perforation or abscess without bleeding; I10 Essential (primary) hypertension; I25.2 Old myocardial infarction; E11.9 Type 2 diabetes mellitus without complications; I25.10 Atherosclerotic heart disease of native coronary artery without angina pectoris; Z79.82 Long term (current) use of aspirin
CPT/HCPCS: 36416; 45385; 82962; 88305; 93005; J2704; J7030

== ENCOUNTER 2023-09-13 14:06 | Emergency (ER) | payer MEDICARE, OTHER, SELFPAY ==
[2023-09-13 15:18] VITALS: BP 126/79; PULSE 65; RESP 14; TEMP 37; O2SAT 95
--- NOTE | 2023-09-13 16:16 | W.ED.BACK ---
Documented by User: ANDREZ Magana 09/13/23 16:43 HPI - Back Pain/Injury General: Chief Complaint: Back Pain/Injury Stated Complaint: Low back pain Time Seen by Provider: 09/13/23 15:50 Source: patient Mode of arrival: ambulatory Limitations: no limitations History of Present Illness: Patient is a very nice 68-year-old male who presents to ED today with complaint of severe lower back pain. He states symptoms first began 2 weeks ago but since then it has progressed to the point where he can barely ambulate. He states pain does not seem to radiate into his lower extremities. Patient states he has had intermittent back discomforts in the past that he rates as minimal and normally easily treated with a chiropractor adjustment. Patient is not been running fevers. He does state a few days ago he underwent a routine colonoscopy and feels like his back pain is worse following this. He is not having any abdominal pain. MD elicited complaint: back pain Pertinent past history: prior back pain Onset (ago): week(s) Timing: constant Severity: severe Pain scale (0-10): 10 Location: lumbar spine Radiation: none and other (L hip) Exacerbating factors: movement, walking, coughing/sneezing and lifting Relieving factors: none Associated symptoms: Reports no associated symptoms; Deny abdominal pain, chills, dysuria, fatigue, fever(s) or hematuria Treatments prior to arrival: heat therapy, acetaminophen and other (topical therapies) Work related injury: No Review of Systems Const: Denies: fever(s), chills, body aches, fatigue or malaise Card: Denies: chest pain Resp: Denies: dyspnea GI: Denies: abdominal pain : Denies: flank pain, dysuria or hematuria Musc: Reports: back pain; Denies: neck pain, extremity pain, extremity swelling, joint pain or joint swelling Skin/Breast: Denies: rash Neuro: Denies: headache(s), numbness in extremities, weakness in extremities, sensory changes or dizziness PFS ED PFSH: Medical History Atherosclerosis of coronary artery HTN (hypertension) ST elevation [place] (STEMI) Peyronie's Disease Epididymal pain Epididymitis Erectile dysfunction DM2 (diabetes mellitus, type 2) Surgical History S/P right coronary artery (RCA) stent placement Hx of vasectomy Family History Other CAD (coronary artery disease) Cancer Hypertension Social History Smoking and tobacco/nicotine status: never used tobacco/nicotine Alcohol intake: current Alcohol intake frequency: few times a week Substance/Drug Use: never Adopted: No Caregiver/support person: No Lives independently: No Household members: spouse Marital status: Current occupational status: retired Physical Exam Const: COMMON NORMALS: average body habitus, patient oriented x3, no limitations, healthy appearing, alert and well nourished GENERAL APPEARANCE: cooperative and in distress (appears significantly uncomfortable secondary to back pain) ORIENTATION/CONSCIOUSNESS: Yes awake, Yes oriented to person, Yes oriented to place and Yes oriented to time Resp: COMMON NORMALS: normal respiratory effort and clear to auscultation bilaterally AUSCULTATION: clear to auscultation bilaterally Cardio: COMMON NORMALS: regular rate and regular rhythm RATE: regular rate RHYTHM: regular rhythm GI: COMMON NORMALS: Normal to inspection, nondistended, normoactive bowel sounds present, Soft to palpation, non-tender, No hepatosplenomegaly present and no masses PALPATION: Yes Soft to palpation and Yes No hepatosplenomegaly present : COMMON NORMALS: Yes no CVA tenderness BLADDER/KIDNEY EXAM: Yes no CVA tenderness Back/Pelvis: COMMON NORMALS: no CVA tenderness and straight leg raise negative bilaterally THORACIC SPINE/UPPER BACK: No thoracic spinal tenderness and No paraspinal muscle tenderness LUMBAR SPINE/LOWER BACK: Yes ROM limited, Yes pain with ROM, Yes lumbar spinal tenderness and Yes straight leg raise negative bilaterally PELVIS: Yes buttocks normal and Yes sciatic notch tenderness on the left SACROILIAC JOINTS: Yes SI joint(s) abnormal SI joint details: tender to palpation (left) SACRUM: no tenderness COCCYX: no tenderness Extremity: COMMON NORMALS: normal to inspection, full ROM, capillary refill normal, no joint enlargement, no clubbing, cyanosis or edema, no calf tenderness and no pedal edema GENERAL: Yes normal exam except as noted Neuro: COMMON NORMALS: patient oriented x3, moves all extremities, no focal motor deficits and no sensory deficits noted SENSORIUM/ORIENTATION: Yes alert, Yes oriented to person, Yes oriented to place and Yes oriented to time GAIT: Yes Unable to assess gait Skin: COMMON NORMALS: no rashes or lesions noted GENERAL SKIN EXAM: no rashes or lesions noted Course Vital Signs: Vital signs: Vital Signs Temperature 98.6 F 09/13/23 15:18 Pulse Rate 60 09/13/23 18:53 Respiratory Rate 16 09/13/23 18:53 Blood Pressure 146/79 09/13/23 18:53 Pulse Oximetry 95 09/13/23 18:53 Oxygen Delivery Me thod Room Air 09/13/23 18:53 MDM - Back Pain/Injury Labs Radiology Impressions Lumbar Spine CT 09/13/23 16:31 IMPRESSION: No acute findings. Relatively advanced degenerative changes throughout the lumbar spine as described in the body of the report. Discharge Plan Discharge Patient Disposition: Home Clinical Impression: Degenerative disc disease, lumbar, Osteoarthritis of lumbosacral spine Condition: Stable Prescriptions: New Methylpred DP 4 mg tablets,dose pack See Rx Instructions .ROUTE .COMPLEX Qty: 21 0RF Rx Instructions: for 6 days methocarbamol 750 mg tablet 750 mg PO TID Qty: 20 0RF Voltaren Arthritis Pain 1 % gel 4 g topical QID Qty: 100 0RF Rx Instructions: apply to low back 4 times a day as needed for pain No Action vitamin E 200 unit capsule 200 unit PO DAILY glipizide 5 mg tablet 2.5 mg PO BID losartan 50 mg tablet 50 mg PO BID metformin 1,000 mg tablet 1,000 mg PO BID Hold Instructions: Resume on 06/22/22. tadalafil 20 mg tablet 20 mg PO DAILY PRN (Reason: sexual activity) Qty: 20 12RF Rx Instructions: administer approximately 30min before sexual activity; NO NITROGLYCERIN! multivitamin Tablet 1 tab PO DAILY cinnamon bark 500 mg capsule 500 mg PO DAILY saw palmetto 160 mg capsule 160 mg PO DAILY Rx Instructions: give with meal/snack Calcium/mag/zinc 1 tab PO DAILY atorvastatin 40 mg tablet 40 mg PO QPM Rx Instructions: TAKE 1 TABLET BY MOUTH DAILY IN THE EVENING clopidogrel 75 mg tablet 75 mg PO DAILY Hold Instructions: Resume on 09/11/23. Rx Instructions: TAKE 1 TABLET BY MOUTH DAILY metoprolol tartrate 25 mg tablet 25 mg PO DAILY Rx Instructions: TAKE 2 TABLETS BY MOUTH TWICE DAILY chlorthalidone 50 mg tablet 25 mg PO DAILY Qty: 60 0RF aspirin 81 mg capsule 81 mg PO DAILY Qty: 90 1RF Discharge Orders: Discharge ED (Routine); Ordered 09/13/23 Ordered By: Dixie Barrios Referrals: Evelyne Shaffer NP [Primary Care Provider] - Patient Instructions: Osteoarthritis (ED), Degenerative Disc Disease (ED) Activity Restrictions/Additional Instructions: CT examination shows significant degenerative disc disease and osteoarthritic changes in your low back. No acute concerns at this time but, as we discussed, these are chronic issues and you may develop more pain and discomfort due to these conditions in the future. We are treating you with some medication to help with your pain but, I encourage you to follow-up with your primary care doctor to discuss as you may require further treatment, intervention, or even possible referral to a spine doctor for more definitive management of these chronic findings. Sign Out Sign Out Data: Patient Sign Out occurred on 09/13/23 at 17:22. Patient's care was discussed, and care was transferred from ANDREZ Magana to ANDREZ Singh. Coding Level of Care Code ED Natural Resources Engineer for Chg Fwd Documented by User: ANDREZ Singh 09/13/23 19:59 HPI - Back Pain/Injury General: Chief Complaint: Back Pain/Injury Stated Complaint: Low back pain Time Seen by Provider: 09/13/23 15:50 PFSH ED PFSH: Medical History Atherosclerosis of coronary artery HTN (hypertension) ST elevation [place] (STEMI) Peyronie's Disease Epididymal pain Epididymitis Erectile dysfunction DM2 (diabetes mellitus, type 2) Surgical History S/P right coronary artery (RCA) stent placement Hx of vasectomy Family History Other CAD (coronary artery disease) Cancer Hypertension Social History Smoking and tobacco/nicotine status: never used tobacco/nicotine Alcohol intake: current Alcohol intake frequency: few times a week Substance/Drug Use: never Adopted: No Caregiver/support person: No Lives independently: No Household members: spouse Marital status: Current occupational status: retired Course Vital Signs: Vital signs: Vital Signs Temperature 98.6 F 09/13/23 15:18 Pulse Rate 60 09/13/23 18:53 Respiratory Rate 16 09/13/23 18:53 Blood Pressure 146/79 09/13/23 18:53 Pulse Oximetry 95 09/13/23 18:53 Oxygen Delivery Me thod Room Air 09/13/23 18:53 MDM - Back Pain/Injury Medical Decision Making Dixie Barrios PA-C: Transfer of care at 1700 from Gloria Mario PA-C. At this time, we are still waiting for final results on the patient's CT imaging. At handoff, Gloria indicated patient had no signs of cauda equina and no neurological deficit appreciated. No known trauma or injury. She had treated him for pain here in the emergency department. Once CT scans had been read, I discussed with patient and that there are no signs of any acute findings. Patient has significant degenerative changes noted to the discs as well as the vertebral bodies. How long discussion about what this meant including issues with recurrence of pain or progression of pain in the future. I encouraged him to follow-up with his primary care doctor to discuss as he may warrant different treatment including chronic narcotic treatment or, evaluation by a search engine optimization specialist. At this time, we will treat with a short course of steroids. Patient is a diabetic and will need to closely monitor his blood sugars. I also gave him topical diclofenac and a muscle relaxer. Informational handout about DDD and osteoarthritis provided to the patient and family to look over at home. Again, recommended follow-up appoint by primary care in the next few days for an overall recheck. Patient verbalized understanding and agreement to treatment plan. Differential Diagnosis Likely strain of lumbar region; Unlikely lumbar radiculopathy, sciatica, pyelonephritis, AAA or discitis Labs Radiology Impressions Lumbar Spine CT 09/13/23 16:31 IMPRESSION: No acute findings. Relatively advanced degenerative changes throughout the lumbar spine as described in the body of the report. All radiology interpretation(s) finalized by discharge Discharge Plan Discharge Patient Disposition: Home Clinical Impression: Degenerative disc disease, lumbar, Osteoarthritis of lumbosacral spine Condition: Stable Prescriptions: New Methylpred DP 4 mg tablets,dose pack See Rx Instructions .ROUTE .COMPLEX Qty: 21 0RF Rx Instructions: for 6 days methocarbamol 750 mg tablet 750 mg PO TID Qty: 20 0RF Voltaren Arthritis Pain 1 % gel 4 g topical QID Qty: 100 0RF Rx Instructions: apply to low back 4 times a day as needed for pain No Action vitamin E 200 unit capsule 200 unit PO DAILY glipizide 5 mg tablet 2.5 mg PO BID losartan 50 mg tablet 50 mg PO BID metformin 1,000 mg tablet 1,000 mg PO BID Hold Instructions: Resume on 06/22/22. tadalafil 20 mg tablet 20 mg PO DAILY PRN (Reason: sexual activity) Qty: 20 12RF Rx Instructions: administer approximately 30min before sexual activity; NO NITROGLYCERIN! multivitamin Tablet 1 tab PO DAILY cinnamon bark 500 mg capsule 500 mg PO DAILY saw palmetto 160 mg capsule 160 mg PO DAILY Rx Instructions: give with meal/snack Calcium/mag/zinc 1 tab PO DAILY atorvastatin 40 mg tablet 40 mg PO QPM Rx Instructions: TAKE 1 TABLET BY MOUTH DAILY IN THE EVENING clopidogrel 75 mg tablet 75 mg PO DAILY Hold Instructions: Resume on 09/11/23. Rx Instructions: TAKE 1 TABLET BY MOUTH DAILY metoprolol tartrate 25 mg tablet 25 mg PO DAILY Rx Instructions: TAKE 2 TABLETS BY MOUTH TWICE DAILY chlorthalidone 50 mg tablet 25 mg PO DAILY Qty: 60 0RF aspirin 81 mg capsule 81 mg PO DAILY Qty: 90 1RF Discharge Orders: Discharge ED (Routine); Ordered 09/13/23 Ordered By: Dixie Barrios Referrals: Evelyne Shaffer NP [Primary Care Provider] - Patient Instructions: Osteoarthritis (ED), Degenerative Disc Disease (ED) Activity Restrictions/Additional Instructions: CT examination shows significant degenerative disc disease and osteoarthritic changes in your low back. No acute concerns at this time but, as we discussed, these are chronic issues and you may develop more pain and discomfort due to these conditions in the future. We are treating you with some medication to help with your pain but, I encourage you to follow-up with your primary care doctor to discuss as you may require further treatment, intervention, or even possible referral to a spine doctor for more definitive management of these chronic findings. Sign Out Sign Out Data: Patient Sign Out occurred on 09/13/23 at 17:22. Patient's care was discussed, and care was transferred from ANDREZ Magana to ANDREZ Singh. Coding Level of Care Code ED Natural Resources Engineer for Brett Elkins
--- NOTE | 2023-09-13 16:31 | CTR_ITS ---
PROCEDURE INFORMATION: Exam: CT Lumbar Spine Without Contrast Exam date and time: 09/13/2023 4:40 PM Age: 68 years old Clinical indication: Patient HX: Nki, low back pain that radiates to the left. Patient is slow to get up and walk due to pain. TECHNIQUE: Imaging protocol: Computed tomography of the lumbar spine without contrast. Radiation optimization: All CT scans at this facility use at least one of these dose optimization techniques: automated exposure control; mA and/or kV adjustment per patient size (includes targeted exams where dose is matched to clinical indication); or iterative reconstruction. COMPARISON: No relevant prior studies available. RADIATION DOSE METRICS: Total DLP (mGy-cm): 851 FINDINGS: Bones/joints: No acute fracture. Mild dextroscoliosis of the lumbar spine. No spinal malalignment. Moderate to severe multilevel degenerative disc disease throughout the lumbar spine. Multilevel disc bulge throughout the lumbar spine leading to areas of moderate central canal stenosis posterior to L3-L4 and L4-L5. Severe facet arthropathy throughout the lumbar spine. Prominent anterior endplate osteophytes noted at the L2-L3 level. There are areas of moderate to severe neural foraminal stenosis in the mid and lower lumbar spine involving the L3-S1 segment. Soft tissues: Unremarkable. CT/CT lumbar spine wo con* [id number] IMPRESSION: No acute findings. Relatively advanced degenerative changes throughout the lumbar spine as described in the body of the report.
[2023-09-13] MEDS: orphenadrine 30 mg/mL Inj 2 mL 60 MG IVP (17:10)
[2023-09-13] MEDS: ketorolac 60 mg/2 mL INJ 30 MG IVP (17:11)
[2023-09-13] MEDS: dexamethasone 10 mg/mL INJ IV (17:12)
[2023-09-13] MEDS: morphine 4 mg/mL SDV 1 mL IVP (17:16)
[2023-09-13 18:53] VITALS: BP 146/79; PULSE 60; RESP 16; O2SAT 95
== END 2023-09-13 19:17 | disposition home or self-care (01) ==
PROVIDERS: Emergency Provider Physician Assistant; PCP Nurse Practitioner Family
DX: M51.36 Other intervertebral disc degeneration, lumbar region (principal); M47.817 Spondylosis without myelopathy or radiculopathy, lumbosacral region; Z79.84 Long term (current) use of oral hypoglycemic drugs; Z79.02 Long term (current) use of antithrombotics/antiplatelets; Z79.82 Long term (current) use of aspirin; I25.10 Atherosclerotic heart disease of native coronary artery without angina pectoris; I10 Essential (primary) hypertension; I25.2 Old myocardial infarction; E11.9 Type 2 diabetes mellitus without complications
CPT/HCPCS: 72131; 96374; 96375; 99285; J1100; J1885; J2270; J2360

== ENCOUNTER → 2023-09-24 08:55 | Outpatient (BNVA) | payer MEDICARE, OTHER, SELFPAY | PROVIDERS: PCP Nurse Practitioner Family; Visit Provider Surgery | DX: Z09 Encounter for follow-up examination after completed treatment for conditions other than malignant neoplasm (principal) | CPT/HCPCS: 99213 ==

== ENCOUNTER → 2023-10-01 09:07 | Outpatient (BNVA) | payer MEDICARE, OTHER, SELFPAY | PROVIDERS: PCP Nurse Practitioner Family; Visit Provider Nurse Practitioner Family | DX: I25.10 Atherosclerotic heart disease of native coronary artery without angina pectoris (principal); I10 Essential (primary) hypertension | CPT/HCPCS: 99214 ==

== ENCOUNTER → 2024-04-04 15:15 | Outpatient (BNVA) | payer MEDICARE, OTHER, SELFPAY | PROVIDERS: PCP Nurse Practitioner Family; Visit Provider Internal Medicine | DX: I25.10 Atherosclerotic heart disease of native coronary artery without angina pectoris (principal); I10 Essential (primary) hypertension; E11.9 Type 2 diabetes mellitus without complications; Z79.84 Long term (current) use of oral hypoglycemic drugs | CPT/HCPCS: 99214 ==

== ENCOUNTER → 2024-09-26 14:25 | Outpatient (BNVA) | payer MEDICARE, OTHER, SELFPAY | PROVIDERS: PCP Nurse Practitioner Family; Visit Provider Nurse Practitioner | DX: L03.90 Cellulitis, unspecified (principal) | CPT/HCPCS: 87070 ==

== ENCOUNTER 2024-09-29 12:57 | Inpatient (IN) | payer MEDICARE, OTHER, SELFPAY ==
[2024-09-29] VITALS (13 sets, daily range): BP systolic 103–135; BP diastolic 61–75; PULSE 60–77; RESP 16–17; TEMP 36.4–37.2; O2SAT 93–99; BMI 26.4; BMI 26.7
--- NOTE | 2024-09-29 13:07 | USR_ITS ---
PROCEDURE INFORMATION: Exam: US Duplex Right Lower Extremity Veins, Limited Exam date and time: 09/29/2024 2:18 PM Age: 69 years old Clinical indication: Swelling (edema) of limb; Lower extremity, right; Additional info: Pain swelling TECHNIQUE: Imaging protocol: Real-time duplex ultrasound of the right extremity with 2-D kurtz scale, color Doppler flow and spectral waveform analysis including responses to compression and other maneuvers (when performed) with image documentation. Limited exam was focused on the right lower extremity veins. COMPARISON: No relevant prior studies available. FINDINGS: Right deep veins: Unremarkable. The common femoral, femoral, proximal profunda femoral and popliteal veins are patent without thrombus. Normal Doppler waveforms. Normal compressibility and/or augmentation response. Superficial veins: Greater saphenous vein at the saphenofemoral junction is patent without thrombus. Soft tissues: Unremarkable. US/[place] [id number] IMPRESSION: No evidence of deep vein thrombosis.
[2024-09-29 14:17] LABS: Hematocrit 41.9 % (37-53); Hemoglobin 14.50 g/dL (11.27-16.99); Mean Corpuscular HGB Conc 34.6 g/dL (30-55); Mean Corpuscular Hemoglobin 32.8 pg (27-33); Mean Corpuscular Volume 94.8 fl (82-101); Nucleated Red Blood Cells % 0 %; Platelet Count 267 10^3/cmm (157-399); Red Blood Count 4.42 10^6/uL (3.85-5.65); White Blood Count 12.83 10^3/uL (3.29-11.43)
[2024-09-29 14:31] LABS: Alanine Aminotransferase 14 U/L (0-41); Albumin Level 4.0 g/dL (3.5-5.2); Alkaline Phosphatase 53 U/L (40-130); Anion Gap 20.2 (5-19); Aspartate Amino Transferase 16 U/L (0-40); Blood Urea Nitrogen 23 mg/dL (8-23); Calcium 9.5 mg/dL (8.5-10.5); Carbon Dioxide 19 mmol/L (22-29); Chloride 98 mmol/L (98-107); Creatinine Clr Calc Pharmacy 64.4962; Globulin 3.1 g/dL (1.3-4.6); Glucose 166 mg/dL (65-115); Osmolality Calculated 283 mOsm/kg (285-295); Potassium 4.2 mmol/L (3.5-5.1); Sodium 133 mmol/L (136-145); Total Protein 7.1 g/dL (6.6-8.7)
[2024-09-29 14:32] LABS: Lactic Sepsis W/Reflex 3.5 mmol/L (0.5-2.2)
--- NOTE | 2024-09-29 14:36 | ED_ITS ---
HPI - Wound/Laceration 2 General: Chief Complaint: Wound/Laceration Stated Complaint: wound on calf Time Seen by Provider: 09/29/24 14:13 History of Present Illness: 69-year-old male presents emergency room he has had a wound on his right calf intermittently has been bothering him he has seen a doctor for it several times he has been on 3 rounds of antibiotics as well as taking steroids. he has never had a culture of the wound. He currently is on doxycycline. He is diabetic Associated symptoms: Denies chills or fever(s) Related Data Home Medications ?Medication ?Instructions ?Recorded ?Confirmed glipizide 5 mg tablet 2.5 mg PO BID 02/05/2009/29 losartan 50 mg tablet 50 mg PO BID 02/05/20 metformin 1,000 mg tablet 1,000 mg PO BID 02/05/2007/21 cinnamon bark 500 mg capsule 500 mg PO DAILY 07/02/22 09/29/24 multivitamin 1 tab PO DAILY 07/02/2207/21 saw palmetto 160 mg capsule 160 mg PO DAILY 07/02/22 0 09/29/24 calcium no.26 167 mg-magnesium 10 cap PO DAILY 09/29/24 no.15 83 mg-zinc 5 mg capsule vitamin E 268 mg (400 unit) capsule 268 mg PO DAILY 09/29/24 Previous Rx's ?Medication ?Instructions ?Recorded aspirin 81 mg capsule 81 mg PO DAILY #90 caps 05/28 09/18 chlorthalidone 50 mg tablet 25 mg (1/2 x 50 mg) PO PAUL LY #60 06/21/22 tabs metoprolol tartrate 25 mg tablet 50 mg (2 x 25 mg) PO BID #360 tabs 11/09/23 amlodipine 5 mg tablet 5 mg PO DAILY #90 tabs 04/04 atorvastatin 40 mg tablet 40 mg PO QPM #90 tabs clopidogrel 75 mg tablet 75 mg PO DAILY #90 tabs 10/20 doxycycline hyclate 100 mg tablet 100 mg PO BID 10 day s #20 tabs 09/26/24 mupirocin 2 % topical ointment 1 applic topical BID 7 days #22 [facility] cefdinir 300 mg capsule 300 mg PO BID 7 days #14 cap s 09/30/24 Allergies Allergy/AdvReac Type Severity Reaction Status Date / Time No Known Allergies Allergy Verified 09/29/24 13:04 Review of Systems 2 Const: Denies: fever(s) or chills Card: Denies: chest pain Resp: Denies: dyspnea GI: Denies: abdominal pain : Denies: dysuria, urinary frequency or urinary urgency Musc: Denies: neck pain or back pain Skin/Breast: Denies: rash PFSH ED 2 PFSH: Medical History Wound cellulitis Phlebitis Atherosclerosis of coronary artery HTN (hypertension) ST elevation [place] (STEMI) Peyronie's Disease Epididymal pain Epididymitis Erectile dysfunction DM2 (diabetes mellitus, type 2) Surgical History S/P right coronary artery (RCA) stent placement Hx of vasectomy Family History Other CAD (coronary artery disease) Cancer Hypertension Social History Smoking and tobacco/nicotine status: never used tobacco/nicotine Alcohol intake: current Alcohol intake frequency: few times a week Substance/Drug Use: never Adopted: No Caregiver/support person: No Lives independently: No Household members: spouse Marital status: Current occupational status: retired Physical Exam 2 Const: GENERAL APPEARANCE: cooperative ORIENTATION/CONSCIOUSNESS: Yes awake, Yes oriented to person, Yes oriented to place and Yes oriented to time HENMT: COMMON NORMALS: normocephalic, atraumatic and hearing grossly normal bilaterally HEAD & SCALP: normocephalic and atraumatic Resp: COMMON NORMALS: normal respiratory effort, No retractions, No use of accessory muscles and clear to auscultation bilaterally AUSCULTATION: clear to auscultation bilaterally Cardio: COMMON NORMALS: regular rate, regular rhythm and No murmurs present (Cardio) RATE: regular rate RHYTHM: regular rhythm GI: COMMON NORMALS: Soft to palpation and No hepatosplenomegaly present A USCULTATION: Yes normoactive bowel sounds PALPATION: Yes Soft to palpation, No Tenderness to palpation present (GI), No Guarding due to palpation present (GI) and Yes No hepatosplenomegaly present Extremity: OTHER: Examination of the right lower leg patient has good femoral and popliteal pulses good dorsalis pedis pulse the medial right calf is devascularize centralized portion of tissue with no active drainage semifluctuant on palpation localized erythema spreading proximally. Neuro: SENSORIUM/ORIENTATION: Yes oriented to person, Yes oriented to place and Yes oriented to time Skin: COMMON NORMALS: no rashes or lesions noted GENERAL SKIN EXAM: no rashes or lesions noted Course 2 Vital Signs: Vital signs: Vital Signs Temperature 97.6 F 09/30/24 15:00 Pulse Rate 65 09/30/24 15:00 Respiratory Rate 18 09/30/24 15:00 Blood Pressure 164/92 09/30/24 15:00 Pulse Oximetry 97 09/30/24 15:00 Oxygen Delivery Me thod Room Air 09/30/24 11:47 Oxygen Flow Rate 6 09/30/24 10:47 MDM - Wound/Laceration Medical Decision Making Central necrosis with minimal localized erythema is very suspicious for an actual brown recluse bite. Discussed with surgeon will admit for debridement. Lab Data I reviewed the patient's lab results. 09/30/24 05:30 09/30/24 05:30 Radiology Impressions Venous Duplex 09/29/24 13:07 IMPRESSION: No evidence of deep vein thrombosis. Lower Extremity CT 09/29/24 18:16 IMPRESSION: 1. Skin thickening and subcutaneous soft tissue edema along the medial/posterior aspect of the lower leg compatible with cellulitis with associated edema. 2. Cord like soft tissue density in the medial/posterior subcutaneous fat could represent septic thrombophlebitis as it appears to course along a superficial vessel. 3. Tiny ill-defined fluid collections just deep to the skin surface may represent developing abscesses. Consider short interval imaging follow-up to evaluate for improvement. Laboratory Results WBC 12.83 10^3/uL (3.29-11.43) H 09/29/24 14:02 RBC 4.42 10^6/uL (3.85-5.65) 09/29/24 14:02 Hgb 14.50 g/dL (11.27-16.99) 09/29/24 14:02 Hct 41.9 % (37-53) 09/29/24 14:02 MCV 94.8 fl (82-101) 09/29/24 14:02 MCH 32.8 pg (27-33) 09/29/24 14:02 MCHC 34.6 g/dL (30-55) 09/29/24 14:02 RDW 12.1 % (12.1-15.1) 09/29/24 14:02 Plt Count 267 10^3/cmm (157-399) 09/29/24 14:02 MPV 8.6 fL (7.4-10.4) 09/29/24 14:02 Neut % (Auto) 74.2 % 09/29/24 14:02 Lymph % (Auto) 17.4 % 09/29/24 14:02 [place] % (Auto) 6.7 % 09/29/24 14:02 Eos % (Auto) 0.6 % 09/29/24 14:02 Baso % (Auto) 0.4 % 09/29/24 14:02 Neut # (Auto) 9.52 10^3/uL (1.8-7.7) H 09/29/24 14:02 Lymph # (Auto) 2.2 10^3/uL (0.8-4.8) 09/29/24 14:02 [place] # (Auto) 0.9 10^3/uL (0.2-0.9) 09/29/24 14:02 Eos # (Auto) 0.1 10^3/uL (0.0-0.8) 09/29/24 14:02 Baso # (Auto) 0.1 10^3/uL (0.0-0.1) 09/29/24 14:02 Nucleated RBC % (auto) 0 % 09/29/24 14:02 Nucleated RBCs # 0.0 /100WBC 09/29/24 14:02 Sodium 133 mmol/L (136-145) L 09/29/24 14:02 Potassium 4.2 mmol/L (3.5-5.1) 09/29/24 14:02 Chloride 98 mmol/L (98-107) 09/29/24 14:02 Carbon Dioxide 19 mmol/L (22-29) L 09/29/24 14:02 Anion Gap 20.2 (5-19) H 09/29/24 14:02 BUN 23 mg/dL (8-23) 09/29/24 14:02 Creatinine 1.1 mg/dL (0.7-1.2) 09/29/24 14:02 GFR Calculation 66.2 mL/min (90-130) L 09/29/24 14:02 Glucose 166 mg/dL (65-115) H 09/29/24 14:02 Estimat Average Glucose 214 09/29/24 14:02 Hemoglobin A1c 9.1 % (4.0-6.0) H 09/29/24 14:02 Calculated Osmolality 283 mOsm/kg (285-295) L 09/29/24 14:02 Lactic Acid 3.5 mmol/L (0.5-2.2) H 09/29/24 14:02 Calcium 9.5 mg/dL (8.5-10.5) 09/29/24 14:02 Total Bilirubin 0.7 mg/dL (0.15-1.2) 09/29/24 14:02 AST 16 U/L (0-40) 09/29/24 14:02 ALT 14 U/L (0-41) 09/29/24 14:02 Alkaline Phosphatase 53 U/L (40-130) 09/29/24 14:02 Total Protein 7.1 g/dL (6.6-8.7) 09/29/24 14:02 Albumin 4.0 g/dL (3.5-5.2) 09/29/24 14:02 Globulin 3.1 g/dL (1.3-4.6) 09/29/24 14:02 All radiology interpretation(s) finalized by discharge Discharge Plan Discharge Patient Disposition: Admitted As Inpatient Admit Provider: Renée Ortega Clinical Impression: Brown recluse spider bite, Wound cellulitis Condition: Stable Discharge Diet: Diabetic Discharge Activity: Resume usual activity Coding Level of Care Code ED Aerial Sprayer for Brett Elkins
[2024-09-29] MEDS: linezolid premix 600 MG/300 ML PREMIX 300 MG IV (14:53)
[2024-09-29 15:18] LABS: Estmated Average Glucose 214; Hemoglobin A1C 9.1 % (4.0-6.0)
--- NOTE | 2024-09-29 15:32 | PM.CONSULT ---
Providers/Reason For Consult Consulting Physician/Specialty*: General Surgery Reason for Consult*: Right lower extremity wound Primary Care Provider: Evelyne Shaffer NP History of Present Illness History of Present Illness Chau Jarquin is a 69 year old male who noticed insect bite on the right leg anterolateral aspect about 3 weeks ago. The wound has been getting bigger in size with surrounding erythema and a central necrotic eschar. Patient will be admitted for IV antibiotics and I was consulted for evaluation for possible surgical debridement and biopsies for tissue diagnosis. Review of Systems General: Reports: 10 or more systems reviewed and unremarkable except in HPI and below Medications/Allergies Home Medications ?Medication ?Instructions ?Recorded ?Confirmed ?Last Taken ?Type glipizide 5 mg tablet 2.5 mg PO BID 02/05/20 09/26/24 09/08/23 History losartan 50 mg tablet 50 mg PO BID 02/05/20 09/26/24 09/08/23 History metformin 1,000 mg tablet 1,000 mg PO BID 02/05/20 09/26/24 09/08/23 History vitamin E 200 unit capsule 200 unit PO DAILY 07/21/21 09/26/24 09/02/23 History aspirin 81 mg capsule 81 mg PO DAILY #90 caps 06/21/22 09/26/24 09/06/23 Rx chlorthalidone 50 mg tablet 25 mg (1/2 x 50 mg) PO DAILY #60 06/21/22 09/26/24 09/08/23 Rx tabs Calcium/mag/zinc 1 tab PO DAILY 07/02/22 09/26/24 09/02/23 History cinnamon bark 500 mg capsule 500 mg PO DAILY 07/02/22 09/26/24 09/02/23 History multivitamin 1 tab PO DAILY 07/02/22 09/26/24 09/02/23 History saw palmetto 160 mg capsule 160 mg PO DAILY 07/02/22 09/26/24 09/02/23 History metoprolol tartrate 25 mg tablet 50 mg (2 x 25 mg) PO BID #360 tabs 11/09/23 09/26/24 Unknown Rx amlodipine 5 mg tablet 5 mg PO DAILY #90 tabs 04/04/24 09/26/24 Unknown Rx atorvastatin 40 mg tablet 40 mg PO QPM #90 tabs 04/04/24 09/26/24 Unknown Rx clopidogrel 75 mg tablet 75 mg PO DAILY #90 tabs 04/04/24 09/26/24 Unknown Rx diclofenac sodium 1 % topical gel 4 g topical QID PRN 04/04/24 09/26/24 Unknown History (Voltaren Arthritis Pain) sulfamethoxazole 800 1 tab PO BID 7 days #14 tabs 09/17/24 09/26/24 Unknown Rx mg-trimethoprim 160 mg tablet (Bactrim DS) prednisone 20 mg tablet 40 mg (2 x 20 mg) PO DAILY #10 tabs 09/19/24 09/26/24 Unknown Rx doxycycline hyclate 100 mg tablet 100 mg PO BID 10 days #20 tabs 09/26/24 09/26/24 Unknown Rx mupirocin 2 % topical ointment 1 applic topical BID 7 days #22 09/26/24 09/26/24 Unknown Rx (Centany) grams Allergies Allergy/AdvReac Type Severity Reaction Status Date / Time No Known Allergies Allergy Verified 09/29/24 13:04 Current Medications Generic Name Dose Route Start Last Admin Trade Name Freq PRN Reason Stop Dose Admin Linezolid 600 mg in 300 mls @ 300 mls/hr 09/29/24 14:46 09/29/24 14:53 Zyvox Premix IV 09/29/24 15:45 300 mls/hr ONCE ONE Administration Protocol PFSH Acute PFSH: Medical History Wound cellulitis Phlebitis Atherosclerosis of coronary artery HTN (hypertension) ST elevation [place] (STEMI) Peyronie's Disease Epididymal pain Epididymitis Erectile dysfunction DM2 (diabetes mellitus, type 2) Surgical History S/P right coronary artery (RCA) stent placement Hx of vasectomy Family History Other CAD (coronary artery disease) Cancer Hypertension Social History Smoking and tobacco/nicotine status: never used tobacco/nicotine Alcohol intake: current Alcohol intake frequency: few times a week Substance/Drug Use: never Adopted: No Caregiver/support person: No Lives independently: No Household members: spouse Marital status: Current occupational status: retired [employer] Last Vital Signs Temp 97.6 F 09/29/24 12:59 Pulse 65 09/29/24 15:00 Resp 16 09/29/24 12:59 BP 114/67 09/29/24 15:00 Pulse Ox 97 09/29/24 15:00 O2 Del Method Room Air 09/29/24 15:00 Weight last 48 hrs Weight 176 lb Physical Exam Extremity: OTHER: In the right lower extremity there is a large area of erythema probably about 15 x 15 cm in the center there is about a 5 cm area of induration with central necrotic eschar of about 1 cm and some exposed subcutaneous fat that appeared to be to lyse. There is no fluctuance, the area is tender to palpation there is 2 peripheral nodular areas with no fluctuance. Data 09/29/24 14:02 09/29/24 14:02 Micro: Microbiology 09/29/24 14:08 Blood Culture - Preliminary Blood SPECIMEN COLLECTED 09/29/24 14:02 Blood Culture - Preliminary Blood SPECIMEN COLLECTED A&P Assessment and plan (1) Wound cellulitis: (2) Brown recluse spider bite: Plan After complete history physical examination and review of all available clinical data the following is my assessment. I agree with initial impression that this most likely represents insect bite, finding site compatible with what we can see on brown recluse spider bite, there appears to be superimposed cellulitis. At this point I agree with proceeding with debridement of the wound to remove any necrotic tissue and obtain tissue for culture and pathology. I have offered right lower extremity wound debridement and washout. I discussed with the patient all risk and benefits including the risks of additional infection, need for sequential debridements, need for at the skin graft in the future, injury to the adjacent structures, residual necrotic tissue requiring intervention, bleeding, abscess formation, chronic pain, delayed wound healing. Patient shows understanding wishes to proceed. All other management per primary team. A CT scan of the leg will be obtained for surgical planning. - N.p.o. after midnight \ -OR tomorrow for debridement PDMP PDMP Reviewed: Not Reviewed Coding Level of Care Code Acute Code for Chg Fwd Diagnoses Wound cellulitis L03.90 Brown recluse spider bite T63.331A
--- NOTE | 2024-09-29 15:55 | PM.HP ---
Providers/Chief Complaint Admitting Physician: Olivia Ortega MD Primary Care Provider: Evelyne Shaffer NP Chief Complaint: wound on calf History of Present Illness Chau Jarquin is a 69 year old male with type 2 diabetes mellitus, hypertension, CAD, and history of [place] status post RCA stent presenting with cellulitis of the right medial calf. He had an insect bite about 2.5 weeks ago. He has developed swelling erythema and pain around the site. There is now a necrotic center. He has been on 3 different antibiotics most most recently on doxycycline. He thinks it could be a tick bite but general surgery thinks that this is more consistent with brown recluse spider bite. General surgery plans to take him to the OR tomorrow for I&D. Review of Systems General: Reports: 10 or more systems reviewed and unremarkable except in HPI and below Medications/Allergies Home Medications ?Medication ?Instructions ?Recorded ?Confirmed ?Last Taken ?Type glipizide 5 mg tablet 2.5 mg PO BID 02/05/20 09/26/24 09/08/23 History losartan 50 mg tablet 50 mg PO BID 02/05/20 09/26/24 09/08/23 History metformin 1,000 mg tablet 1,000 mg PO BID 02/05/20 09/26/24 09/08/23 History vitamin E 200 unit capsule 200 unit PO DAILY 07/21/21 09/26/24 09/02/23 History aspirin 81 mg capsule 81 mg PO DAILY #90 caps 06/21/22 09/26/24 09/06/23 Rx chlorthalidone 50 mg tablet 25 mg (1/2 x 50 mg) PO DAILY #60 06/21/22 09/26/24 09/08/23 Rx tabs Calcium/mag/zinc 1 tab PO DAILY 07/02/22 09/26/24 09/02/23 History cinnamon bark 500 mg capsule 500 mg PO DAILY 07/02/22 09/26/24 09/02/23 History multivitamin 1 tab PO DAILY 07/02/22 09/26/24 09/02/23 History saw palmetto 160 mg capsule 160 mg PO DAILY 07/02/22 09/26/24 09/02/23 History metoprolol tartrate 25 mg tablet 50 mg (2 x 25 mg) PO BID #360 tabs 11/09/23 09/26/24 Unknown Rx amlodipine 5 mg tablet 5 mg PO DAILY #90 tabs 04/04/24 09/26/24 Unknown Rx atorvastatin 40 mg tablet 40 mg PO QPM #90 tabs 04/04/24 09/26/24 Unknown Rx clopidogrel 75 mg tablet 75 mg PO DAILY #90 tabs 04/04/24 09/26/24 Unknown Rx diclofenac sodium 1 % topical gel 4 g topical QID PRN 04/04/24 09/26/24 Unknown History (Voltaren Arthritis Pain) sulfamethoxazole 800 1 tab PO BID 7 days #14 tabs 09/17/24 09/26/24 Unknown Rx mg-trimethoprim 160 mg tablet (Bactrim DS) prednisone 20 mg tablet 40 mg (2 x 20 mg) PO DAILY #10 tabs 09/19/24 09/26/24 Unknown Rx doxycycline hyclate 100 mg tablet 100 mg PO BID 10 days #20 tabs 09/26/24 09/26/24 Unknown Rx mupirocin 2 % topical ointment 1 applic topical BID 7 days #22 09/26/24 09/26/24 Unknown Rx (Centany) grams Allergies Allergy/AdvReac Type Severity Reaction Status Date / Time No Known Allergies Allergy Verified 09/29/24 13:04 PFSH Acute PFSH: Medical History Wound cellulitis Phlebitis Atherosclerosis of coronary artery HTN (hypertension) ST elevation [place] (STEMI) Peyronie's Disease Epididymal pain Epididymitis Erectile dysfunction DM2 (diabetes mellitus, type 2) Surgical History S/P right coronary artery (RCA) stent placement Hx of vasectomy Family History Other CAD (coronary artery disease) Cancer Hypertension Social History Smoking and tobacco/nicotine status: never used tobacco/nicotine Alcohol intake: current Alcohol intake frequency: few times a week Substance/Drug Use: never Adopted: No Caregiver/support person: No Lives independently: No Household members: spouse Marital status: Current occupational status: retired Vitals/I&O/Wt Last Vital Signs Temp 97.6 F 09/29/24 12:59 Pulse 63 09/29/24 15:30 Resp 16 09/29/24 12:59 BP 109/64 09/29/24 15:30 Pulse Ox 97 09/29/24 15:30 O2 Del Method Room Air 09/29/24 15:30 Weight last 48 hrs Weight 79.832 kg Physical Exam Narrative: GEN: Alert no acute distress HEENT: Normocephalic and atraumatic Neck: Supple Respiratory: Normal effort, clear to auscultation bilaterally Cardio: Regular rate and rhythm, S1, S2, no murmurs Abdomen: Soft, nontender, nondistended, normal active bowel sounds Extremity: Warm, full range of motion, no edema Skin: 15 x 15 cm area of erythema with induration in the center and central necrotic eschar Data 09/29/24 14:02 09/29/24 14:02 Micro: Microbiology 09/29/24 14:08 Blood Culture - Preliminary Blood SPECIMEN COLLECTED 09/29/24 14:02 Blood Culture - Preliminary Blood SPECIMEN COLLECTED A&P Assessment and plan (1) Brown recluse spider bite: Wound consistent with brown recluse spider bite with superimposed cellulitis Failed oral antibiotics Has necrotic center and general surgery plans to do I&D in the a.m. CT right leg pending Linezolid and ceftriaxone (2) Wound cellulitis: As above (3) DM2 (diabetes mellitus, type 2): Holding glipizide Sliding scale insulin Follow-up A1c (4) HTN (hypertension): Holding metoprolol, amlodipine, losartan and chlorthalidone in anticipation of surgery tomorrow (5) Atherosclerosis of coronary artery: History of STEMI in June 2022 status post stents to RCA Holding aspirin and Plavix PDMP PDMP Reviewed: Not Reviewed Attestations Medical Necessity Statement*: Patient requires hospitalization for IV antibiotics and I&D of right leg wound tomorrow Coding Level of Care Code 34402 Diagnoses Brown recluse spider bite T63.331A Wound cellulitis L03.90 DM2 (diabetes mellitus, type 2) E11.9 Primary hypertension I10 Hypertension type: primary hypertension Atherosclerosis of [place] coronary artery of [place] heart without angina pectoris I25.10 Coronary Disease-Associated Artery/Lesion type: [place] artery [place] vs. transplanted heart: [place] heart Associated angina: without angina
[2024-09-29 15:57] LABS: Reflex Lactate Order REFLEX LACTIC ORDERD
--- NOTE | 2024-09-29 16:14 | PC.NURSE ---
This nurse called Hospitalist Dr. Facundo Ortega and verbal read back for pt to have diet order placed so pt could get dinner tray. Pt is NPO at midnight.
--- NOTE | 2024-09-29 16:37 | PC.NURSE ---
This nurse took report from WILFRIDO Hawk in ER at [id number].
[2024-09-29] MEDS: sodium chloride 0.9% 2,394.96 ML 2394.96 ML IV (16:41)
--- NOTE | 2024-09-29 17:40 | PC.NURSE ---
This nurse assumed care of pt at this time.
[2024-09-29] MEDS: cefTRIAXone 1,000 mg SDV 1000 MG IVP (18:02)
[2024-09-29 18:14] LABS: Lactic Acid level (Lactate) 2.8 mmol/L (0.5-2.2)
--- NOTE | 2024-09-29 18:16 | CTR_ITS ---
PROCEDURE INFORMATION: Exam: CT Right Lower Extremity Without Contrast, Leg Exam date and time: 09/29/2024 9:33 PM Age: 69 years old Clinical indication: Circular open wound to medial side of RT mid tib/fib. ; Additional info: Possible abcess TECHNIQUE: Imaging protocol: CT of the right lower extremity without contrast was performed. Exam focused on the lower leg. Radiation optimization: All CT scans at this facility use at least one of these dose optimization techniques: automated exposure control; mA and/or kV adjustment per patient size (includes targeted exams where dose is matched to clinical indication); or iterative reconstruction. COMPARISON: [place] [id number] 09/29/2024 2:18 PM RADIATION DOSE METRICS: Total DLP (mGy-cm): 960.8 FINDINGS: Bones/joints: Normal. No acute fracture or dislocation. Soft tissues: Areas of skin thickening and subcutaneous soft tissue edema along the medial/posterior aspect of the lower leg, most pronounced in the mid lower leg. Cord-like area of ill-defined soft tissue density in the subcutaneous fat of the medial/posterior lower leg, possibly along the course of the superficial vein. Associated ill-defined small fluid densities (for example on series 12, image 83). CT/CT lower leg RT w con [id number] IMPRESSION: 1. Skin thickening and subcutaneous soft tissue edema along the medial/posterior aspect of the lower leg compatible with cellulitis with associated edema. 2. Cord like soft tissue density in the medial/posterior subcutaneous fat could represent septic thrombophlebitis as it appears to course along a superficial vessel. 3. Tiny ill-defined fluid collections just deep to the skin surface may represent developing abscesses. Consider short interval imaging follow-up to evaluate for improvement.
[2024-09-29] MEDS: iohexol 350 mg/mL 500 mL Btl (per mL) IV (21:42)
[2024-09-30] VITALS (14 sets, daily range): BP systolic 109–164; BP diastolic 71–94; PULSE 63–72; RESP 16–18; TEMP 36.2–36.8; O2SAT 95–99
[2024-09-30] MEDS: linezolid premix 600 MG/300 ML PREMIX 300 MG IV (03:25)
[2024-09-30 05:58] LABS: Hematocrit 38.0 % (37-53); Hemoglobin 13.10 g/dL (11.27-16.99); Mean Corpuscular HGB Conc 34.5 g/dL (30-55); Mean Corpuscular Hemoglobin 32.3 pg (27-33); Mean Corpuscular Volume 93.8 fl (82-101); Nucleated Red Blood Cells % 0 %; Platelet Count 221 10^3/cmm (157-399); Red Blood Count 4.05 10^6/uL (3.85-5.65); White Blood Count 8.42 10^3/uL (3.29-11.43)
[2024-09-30 06:22] LABS: Alanine Aminotransferase 10 U/L (0-41); Albumin Level 3.5 g/dL (3.5-5.2); Alkaline Phosphatase 43 U/L (40-130); Anion Gap 16.0 (5-19); Aspartate Amino Transferase 14 U/L (0-40); Blood Urea Nitrogen 17 mg/dL (8-23); Calcium 8.8 mg/dL (8.5-10.5); Carbon Dioxide 22 mmol/L (22-29); Chloride 102 mmol/L (98-107); Creatinine Clr Calc Pharmacy 70.3815; Globulin 2.7 g/dL (1.3-4.6); Glucose 152 mg/dL (65-115); Osmolality Calculated 287 mOsm/kg (285-295); Potassium 4.0 mmol/L (3.5-5.1); Sodium 136 mmol/L (136-145); Total Protein 6.2 g/dL (6.6-8.7)
--- NOTE | 2024-09-30 08:30 | ANES.PREANE2 ---
Pre-Anesthetic Assessment Height/Weight: Height 1.73 m Weight 78.381 kg Temp Pulse Resp BP Pulse Ox O2 Del Method 98.3 F 72 17 130/79 97 Room Air 09/30/24 08:25 09/30/24 08:25 09/30/24 08:25 09/30/24 08:25 09/30/24 08:25 09/30/24 08:25 Operation Date: 09/30/24 10:20 Proposed Procedures p Debridement(Right) - Femi Cedeño MD Familial anesthetic complications: None Was Beta Valentina taken within 24 hours: N/A Was Clonidine taken within 24 hours: N/A Last intake: > 8 hrs Social No alcohol and No tobacco Exam alert, oriented x 3, clear to auscultation bilaterally and regular rate & rhythm Airway Mallampati: Class II CV/HEM Coronary Artery Disease (2 stents), Hypertension and Myocardial Infarction (> 2 years ago) GI Hiatal Hernia (denies any symptoms of gerd) Metabolic Diabetes Mellitus Anesthetic Plan ASA status: 3 Anesthesia: General Risk of > 500 ml blood loss (7ml/kg in children): No Medications/Allergies Home Medications ?Medication ?Instructions ?Recorded ?Confirmed ?Last Taken ?Type glipizide 5 mg tablet 2.5 mg PO BID 02/05/20 09/29/24 09/29/24 07:00 History losartan 50 mg tablet 50 mg PO BID 02/05/20 09/29/24 09/29/24 07:00 History metformin 1,000 mg tablet 1,000 mg PO BID 02/05/20 09/29/24 09/29/24 07:00 History aspirin 81 mg capsule 81 mg PO DAILY #90 caps 06/21/22 09/29/24 09/29/24 Rx chlorthalidone 50 mg tablet 25 mg (1/2 x 50 mg) PO DAILY #60 06/21/22 09/29/24 09/29/24 Rx tabs cinnamon bark 500 mg capsule 500 mg PO DAILY 07/02/22 09/29/24 09/02/23 History multivitamin 1 tab PO DAILY 07/02/22 09/29/24 09/02/23 History saw palmetto 160 mg capsule 160 mg PO DAILY 07/02/22 09/29/24 09/02/23 History metoprolol tartrate 25 mg tablet 50 mg (2 x 25 mg) PO BID #360 tabs 11/09/23 09/29/24 09/29/24 Rx amlodipine 5 mg tablet 5 mg PO DAILY #90 tabs 04/04/24 09/29/24 09/29/24 Rx atorvastatin 40 mg tablet 40 mg PO QPM #90 tabs 04/04/24 09/29/24 09/28/24 18:00 Rx clopidogrel 75 mg tablet 75 mg PO DAILY #90 tabs 04/04/24 09/29/24 09/29/24 Rx doxycycline hyclate 100 mg tablet 100 mg PO BID 10 days #20 tabs 09/26/24 09/29/24 09/29/24 Rx mupirocin 2 % topical ointment 1 applic topical BID 7 days #22 09/26/24 09/29/24 09/28/24 Rx (Centany) grams calcium no.26 167 mg-magnesium 10 cap PO DAILY 09/29/24 09/29/24 Unknown History no.15 83 mg-zinc 5 mg capsule vitamin E 268 mg (400 unit) capsule 268 mg PO DAILY 09/29/24 09/29/24 Unknown History Allergies Allergy/AdvReac Type Severity Reaction Status Date / Time No Known Allergies Allergy Verified 09/29/24 13:04 Current Medications Generic Name Dose Route Start Last Admin Trade Name Freq PRN Reason Stop Dose Admin Ceftriaxone Sodium 1,000 mg 09/29/24 17:38 09/29/24 18:02 Ceftriaxone 1,000 Mg Sdv IVP 1,000 mg Q24H [facility] Administration Protocol Doxycycline Monohydrate 100 mg 09/29/24 18:30 09/29/24 18:50 Doxycycline 100 Mg Tablet PO 10/09/24 18:29 100 mg BID TREVA Administration Protocol Linezolid 600 mg in 300 mls @ 300 mls/hr 09/30/24 03:00 09/30/24 05:16 Zyvox Premix IV Infused Q12H [facility] Infusion Protocol Insulin Human Lispro 0 unit 09/29/24 18:00 09/30/24 07:30 Insulin Lispro 100 Unit/1 Ml SUBCUT Not Given WM&BEDTIME [facility] Protocol [facility] Anesthesia Medical History Wound cellulitis Phlebitis Atherosclerosis of coronary artery HTN (hypertension) ST elevation [place] (STEMI) Peyronie's Disease Epididymal pain Epididymitis Erectile dysfunction DM2 (diabetes mellitus, type 2) Surgical History S/P right coronary artery (RCA) stent placement Hx of vasectomy Family History Other CAD (coronary artery disease) Cancer Hypertension Social History Smoking and tobacco/nicotine status: never used tobacco/nicotine Alcohol intake: current Alcohol intake frequency: few times a week Substance/Drug Use: never Adopted: No Caregiver/support person: No Lives independently: No Household members: spouse Marital status: Current occupational status: retired Data Anesthesia 09/30/24 05:30 09/30/24 05:30 Short CBC 09/29/24 09/30/24 Range/Units 14:02 05:30 WBC 12.83 H 8.42 (3.29-11.43) 10^3/uL Hgb 14.50 13.10 (11.27-16.99) g/dL Hct 41.9 38.0 (37-53) % MCV 94.8 93.8 (82-101) fl Plt Count 267 221 (157-399) 10^3/cmm Neut % (Auto) 74.2 61.5 % Neut # (Auto) 9.52 H 5.19 (1.8-7.7) 10^3/uL BMP 09/29/24 09/30/24 14:02 05:30 Sodium 133 L 136 Potassium 4.2 4.0 Chloride 98 102 Carbon Dioxide 19 L 22 BUN 23 17 Creatinine 1.1 1.0 Glucose 166 H 152 H Calcium 9.5 8.8 Liver Function 09/29/24 09/30/24 Range/Units 14:02 05:30 Total Bilirubin 0.7 0.8 (0.15-1.2) mg/dL AST 16 14 (0-40) U/L ALT 14 10 (0-41) U/L Alkaline Phosphatase 53 43 (40-130) U/L Albumin 4.0 3.5 (3.5-5.2) g/dL Microbiology 09/29/24 14:08 Blood Culture - Preliminary Blood SPECIMEN COLLECTED 09/29/24 14:02 Blood Culture - Preliminary Blood SPECIMEN COLLECTED Cardiac Studies: Echocardiogram 06/20/22
--- NOTE | 2024-09-30 09:32 | P.HPUD_ITS ---
Surgery/Procedure H&P Update DATE OF PROCEDURE: September 30, 2024 DATE H&P PERFORMED: 09/29/24 H&P UPDATE INFORMATION: I have reviewed H&P completed within last 30 days, I have examined patient prior to procedure, No changes to prior documentation, H&P is in [facility] EMR on date indicated and Risks and benefits of the procedure reviewed PLANNED PROCEDURE: Operation Date: 09/30/24 10:20 Proposed Procedures p Debridement(Right) - Femi Cedeño MD
--- NOTE | 2024-09-30 10:48 | P.OP_ITS ---
Operative Report Date of procedure: September 30, 2024 Pre-op diagnosis: Necrotic wound with abscess of the right lower extremity due to insect bite Post-op diagnosis: same Post-op findings: In the right lower extremity there is about 2 inch diameter area of erythema central necrosis surrounded by a much wider about 10 to 15 cm area of erythema with some subcutaneous swelling. About a 2.5 cm diameter area of ischemia subcutaneous tissue was removed, small amount of abscess formation was noted and evacuated the wound was irrigated and packed Procedure done: Sharp excisional debridement and washout of right lower extremity wound Specimens removed/disposition: Wound cultures, skin subcutaneous tissue of the right lower extremity for pathology Surgeon: Femi Cedeño MD Data Processing Auditor: CHUCK OR Staff Estimated blood loss: 5 Complications: none Brief History: This is a 69-year-old male who presents with with an insect bite of the right lower extremity and surrounding erythema and necrosis. After discussion with the patient was had to proceed for debridement to the operating room. Procedure: Patient was placed in a supine position. General anesthesia was given. The right lower extremity was prepped and draped in usual sterile fashion. A timeout was conducted. I then proceeded to examine the necrotic wound in the right leg. I used a punch biopsy to take biopsy of the center of the wound taking the biopsy sample some purulence was noted coming from the subcutaneous tissue. After removing the punch biopsy I then proceeded to use a hemostat to open up the abscess cavity, no significant abscess cavity was noted, the purulence was coming more from the superficial subcutaneous tissue and active as a carbuncle. I then proceeded to use a combination of sharp dissection and cure tte to eliminate all the ability to lyse the skin and subcutaneous tissue from the surrounding area and also wound cultures were obtained. An area of 2.5 cm in diameter and half centimeter in depth was debrided. The wound was then washed out with profuse amount of saline and hemostasis was obtained. No further purulence was noted and the tissue was healthy and bleeding on all sides. I then proceeded to dress the wound with a wet-to-dry dressing and the leg was wrapped. At the end of the procedure all counts were correct the patient tolerated well the procedure was transferred to PACU in stable condition.
--- NOTE | 2024-09-30 10:48 | PC.CHAP ---
Pastoral Care Encounter/Spiritual Assessment Type of Contact [] Declined manager user interface visit [] Patient/Family/Request visit [] Outpatient visit [] Follow-up visit [] Physician referral [] Code/Alert [x] Routine visit [] Staff referral [] Actively dying [] Patient sleeping [] Family support [] [x] Out of room [] Palliative care [] [] Receiving care in room [] Pre-surgical visit [] Trauma [] Long length of stay [] ICU visit [] Other: Relational/Emotional Strength [] Patient feels connected with others/family/visitors/staff [] Distress [] Loneliness/isolation [] Abandonment Spirituality of Patient [] Person of Karen [] Attends Jew of their Karen [] Believes in Prayer [] Reads Bible or Anabaptist materials [] There are Spiritual issues to be addressed Celebr[employer] Personality Interventions [] Prayer [] Active listening [] Non-anxious presence [] Spiritual/emotional support [] Crisis/trauma care [] Spiritual counseling [] Bereavement support [] Provided bereavement packet [] Provided Bible/devotional materials [] Provided toy/stuffed animal, coloring book to patient or family member [] Provided Communion [] Anointing/[place] [] Salvation [] Completed spiritual assessment [] Other: Impact on Illness or Injury [] Angry [] Fearful [] Anxious [] Often cries [] Exhaustion [] Unable to work [] Unable to attend cheondoism [] Unable to walk/stand [] Unable to read [] Unable to drive [] Unable to eat/drink [] Unable to sleep [] Unable to be with family [] Patient intubated [] Other: Summary Time spent with patient
--- NOTE | 2024-09-30 10:52 | PC.CHAP ---
Pastoral Care Encounter/Spiritual Assessment Type of Contact [] Declined health and physical education teacher visit [] Patient/Family/Request visit [] Outpatient visit [] Follow-up visit [] Physician referral [] Code/Alert [x] Routine visit [] Staff referral [] Actively dying [] Patient sleeping [] Family support [] [x] Out of room [] Palliative care [] [] Receiving care in room [] Pre-surgical visit [] Trauma [] Long length of stay [] ICU visit [] Other: Relational/Emotional Strength [] Patient feels connected with others/family/visitors/staff [] Distress [] Loneliness/isolation [] Abandonment Spirituality of Patient [] Person of Karen [] Attends Anglican of their Karen [] Believes in Prayer [] Reads Bible or Zoroastrian materials [] There are Spiritual issues to be addressed [employer] Installer Interventions [] Prayer [] Active listening [] Non-anxious presence [] Spiritual/emotional support [] Crisis/trauma care [] Spiritual counseling [] Bereavement support [] Provided bereavement packet [] Provided Bible/devotional materials [] Provided toy/stuffed animal, coloring book to patient or family member [] Provided Communion [] Anointing/[place] [] Salvation [] Completed spiritual assessment [] Other: Impact on Illness or Injury [] Angry [] Fearful [] Anxious [] Often cries [] Exhaustion [] Unable to work [] Unable to attend judaism [] Unable to walk/stand [] Unable to read [] Unable to drive [] Unable to eat/drink [] Unable to sleep [] Unable to be with family [] Patient intubated [] Other: Summary Time spent with patient
--- NOTE | 2024-09-30 11:15 | ANE.PACU2 ---
Inpatient post-anesthesia follow up: Airway intact: Yes Vital signs: Temperature 97.6 F Pulse Rate 65 Respiratory Rate 18 Blood Pressure 164/92 Pulse Oximetry 97 Oxygen Delivery Me thod Room Air Oxygen Flow Rate 6 Fraction of Inspir ed Oxygen Hydration adequate: Yes Nausea and vomiting: No Pain level: 1 Mental status: Baseline
--- NOTE | 2024-09-30 14:13 | P.DS_ITS ---
Discharge Providers Date of Admission: 09/29/24 16:30 Date of Discharge: September 30, 2024 Attending Provider at Admission: Renée Ortega MD Attending Provider at Discharge: Renée Ortega MD Primary Care Provider: Evelyne Shaffer NP Diagnoses at Discharge Discharge Diagnosis (1) Brown recluse spider bite: Status: Acute (2) Wound cellulitis: Status: Acute (3) DM2 (diabetes mellitus, type 2): Status: Acute (4) HTN (hypertension): Status: Acute Qualifiers: Hypertension type: primary hypertension Qualified Code(s): I10 - Essent ial (primary) hypertension (5) Atherosclerosis of coronary artery: Status: Acute Qualifiers: Associated angina: without angina Coronary Disease-Associated Artery/Lesion type: [place] artery [place] vs. transplanted heart: [place] heart Qualified Code(s): I25.10 - Atherosclerotic heart disease of [place] coronary artery without angina pectoris Reason for Visit Reason for Visit: wound on calf Brief History: Chau Jarquin is a 69 year old male with type 2 diabetes mellitus, hypertensi on, CAD, and history of [place] status post RCA stent who presented with cellulitis of the right medial calf. He had an insect bite about 2.5 weeks ago. He developed swelling erythema and pain around the site and a necrotic center. He had been on 3 different antibiotics most recently on doxycycline. He thinks it could be a tick bite but general surgery thinks that this is more consistent with brown recluse spider bite. Hospital Course Hospital Course He was started IV antibiotics and underwent I&D by general surgery. He tolerated the procedure well. He was discharged home on oral antibiotics. He will follow up with wound care clinic next week. Physical Exam Narrative: GEN: Alert no acute distress HEENT: Normocephalic and atraumatic Neck: Supple Respiratory: Normal effort, clear to auscultation bilaterally Cardio: Regular rate and rhythm, S1, S2, no murmurs Abdomen: Soft, nontender, nondistended, normal active bowel sounds Extremity: Warm, full range of motion, no edema Skin: right leg bandaged Discharge Data Studies Completed and Pending Completed Studies During Hospitalization Category Date Time Status CT lower leg RT w con [id number] Routine Cat Scan 09/29/24 18:16 Completed US venous duplex lower extremity RT [CV venous duplex Ultrasound 09/29/24 13:07 [place] [id number]] Stat Pending at discharge Category Date Time Status Anaerobic Culture Routine Lab 09/30/24 10:30 Received Blood Culture Stat Lab 09/29/24 14:08 Results Tick Panel Routine Lab 09/29/24 14:02 Received Wound Culture and Gram Stain Routine Lab 09/30/24 10:30 Received Pathology: Surgical [PTH] Routine Pth 09/30/24 10:34 Ordered Radiology Impressions Venous Duplex 09/29/24 13:07 IMPRESSION: No evidence of deep vein thrombosis. Lower Extremity CT 09/29/24 18:16 IMPRESSION: 1. Skin thickening and subcutaneous soft tissue edema along the medial/posterior aspect of the lower leg compatible with cellulitis with associated edema. 2. Cord like soft tissue density in the medial/posterior subcutaneous fat could represent septic thrombophlebitis as it appears to course along a superficial vessel. 3. Tiny ill-defined fluid collections just deep to the skin surface may represent developing abscesses. Consider short interval imaging follow-up to evaluate for improvement. Laboratory Results WBC 8.42 10^3/uL (3.29-11.43) 09/30/24 05:30 RBC 4.05 10^6/uL (3.85-5.65) 09/30/24 05:30 Hgb 13.10 g/dL (11.27-16.99) 09/30/24 05:30 Hct 38.0 % (37-53) 09/30/24 05:30 MCV 93.8 fl (82-101) 09/30/24 05:30 MCH 32.3 pg (27-33) 09/30/24 05:30 MCHC 34.5 g/dL (30-55) 09/30/24 05:30 RDW 12.1 % (12.1-15.1) 09/30/24 05:30 Plt Count 221 10^3/cmm (157-399) 09/30/24 05:30 MPV 8.8 fL (7.4-10.4) 09/30/24 05:30 Neut % (Auto) 61.5 % 09/30/24 05:30 Lymph % (Auto) 25.2 % 09/30/24 05:30 [place] % (Auto) 11.2 % 09/30/24 05:30 Eos % (Auto) 1.0 % 09/30/24 05:30 Baso % (Auto) 0.6 % 09/30/24 05:30 Neut # (Auto) 5.19 10^3/uL (1.8-7.7) 09/30/24 05:30 Lymph # (Auto) 2.1 10^3/uL (0.8-4.8) 09/30/24 05:30 Imperial # (Auto) 0.9 10^3/uL (0.2-0.9) 09/30/24 05:30 Eos # (Auto) 0.1 10^3/uL (0.0-0.8) 09/30/24 05:30 Baso # (Auto) 0.1 10^3/uL (0.0-0.1) 09/30/24 05:30 Nucleated RBC % (auto) 0 % 09/30/24 05:30 Nucleated RBCs # 0.0 /100WBC 09/30/24 05:30 Sodium 136 mmol/L (136-145) 09/30/24 05:30 Potassium 4.0 mmol/L (3.5-5.1) 09/30/24 05:30 Chloride 102 mmol/L (98-107) 09/30/24 05:30 Carbon Dioxide 22 mmol/L (22-29) 09/30/24 05:30 Anion Gap 16.0 (5-19) 09/30/24 05:30 BUN 17 mg/dL (8-23) 09/30/24 05:30 Creatinine 1.0 mg/dL (0.7-1.2) 09/30/24 05:30 GFR Calculation 73.9 mL/min (90-130) L 09/30/24 05:30 Glucose 152 mg/dL (65-115) H 09/30/24 05:30 POC Glucose 189 mg/dL (70-110) H 09/30/24 11:33 Estimat Average Glucose 214 09/29/24 14:02 Hemoglobin A1c 9.1 % (4.0-6.0) H 09/29/24 14:02 Calculated Osmolality 287 mOsm/kg (285-295) 09/30/24 05:30 Lactic Acid 3.5 mmol/L (0.5-2.2) H 09/29/24 14:02 Lactic Acid (Sepsis) 2.8 mmol/L (0.5-2.2) H 09/29/24 17:10 Calcium 8.8 mg/dL (8.5-10.5) 09/30/24 05:30 Total Bilirubin 0.8 mg/dL (0.15-1.2) 09/30/24 05:30 AST 14 U/L (0-40) 09/30/24 05:30 ALT 10 U/L (0-41) 09/30/24 05:30 Alkaline Phosphatase 43 U/L (40-130) 09/30/24 05:30 Total Protein 6.2 g/dL (6.6-8.7) L 09/30/24 05:30 Albumin 3.5 g/dL (3.5-5.2) 09/30/24 05:30 Globulin 2.7 g/dL (1.3-4.6) 09/30/24 05:30 Vitals Last Vital Signs Temp 97.6 F 09/30/24 11:47 Pulse 65 09/30/24 11:47 Resp 16 09/30/24 11:47 BP 164/92 09/30/24 11:47 Pulse Ox 97 09/30/24 11:47 O2 Del Method Room Air 09/30/24 11:47 O2 Flow Rate 6 09/30/24 10:47 Discharge Plan Discharge Patient Disposition: Home Condition: Stable Prescriptions: New cefdinir 300 mg capsule 300 mg PO BID 7 Days Qty: 14 0RF Continued glipizide 5 mg tablet 2.5 mg PO BID losartan 50 mg tablet 50 mg PO BID metformin 1,000 mg tablet 1,000 mg PO BID multivitamin Tablet 1 tab PO DAILY cinnamon bark 500 mg capsule 500 mg PO DAILY saw palmetto 160 mg capsule 160 mg PO DAILY Rx Instructions: give with meal/snack amlodipine 5 mg tablet 5 mg PO DAILY Qty: 90 3RF clopidogrel 75 mg tablet 75 mg PO DAILY Qty: 90 3RF Rx Instructions: TAKE 1 TABLET BY MOUTH DAILY atorvastatin 40 mg tablet 40 mg PO QPM Qty: 90 3RF Rx Instructions: TAKE 1 TABLET BY MOUTH DAILY IN THE EVENING doxycycline hyclate 100 mg tablet 100 mg PO BID 10 Days Qty: 20 0RF mupirocin [Centany] 2 % ointment 1 applic topical BID 7 Days Qty: 22 0RF metoprolol tartrate 25 mg tablet 50 mg PO BID Qty: 360 3RF calcium 26-magnesium 15-zinc 167 mg calcium- 83 mg-5 mg Capsule 10 cap PO DAILY vitamin E 268 mg (400 unit) Capsule 268 mg PO DAILY chlorthalidone 50 mg tablet 25 mg PO DAILY Qty: 60 0RF aspirin 81 mg capsule 81 mg PO DAILY Qty: 90 1RF Discharge Orders: Discharge Order (Routine); Ordered 09/30/24 Ordered By: Renée Ortega Referrals: Femi Cedeño MD [Physician, General Surgery] Referral Note: 2 weeks We have notified your physician's clinic of the need for a follow-up appointment to be scheduled. If you have not heard from them within the next 2 business days, please call them directly. Alek Harrington FNP [Nurse Practitioner, Wound Care] Referral Note: follow up Evelyne Shaffer NP [Primary Care Provider, Unknown] Referral Note: We have notified your physician's clinic of the need for a follow-up appointment to be scheduled. If you have not heard from them within the next 2 business days, please call them directly. Discharge Diet: Diabetic Discharge Activity: Resume usual activity Patient Instructions: Cellulitis, Cefdinir (By mouth), Brown Recluse Spider Bite (DC), Acute Wound Care (DC), Opioid Safety, Post Anesthesia Care, Patient Portal & Beatriz Instructions Activity Restrictions/Additional Instructions: General surgery instructions: ? Continue daily wet-to-dry dressing, place a wet gauze inside of the wound cover with dry gauze and then wrap. On when you see the wound care clinic they will decide on what dressing you will need in the long-term. I will see you in the office in 2 weeks. Return to the hospital if you have persistent cellulitis pain that is getting worse over time or you see purulence draining from your wound. Discharge Attestations Time Spent in Discharge Care*: greater than 30 min Quality Metrics Clinical Quality Measures [ No reported AMI, CVA or VTE this stay] Coding Level of Care Code 82155 Diagnoses Brown recluse spider bite T63.331A Wound cellulitis L03.90 DM2 (diabetes mellitus, type 2) E11.9 Primary hypertension I10 Hypertension type: primary hypertension Atherosclerosis of [place] coronary artery of [place] heart without angina pectoris I25.10 Associated angina: without angina Coronary Disease-Associated Artery/Lesion type: [place] artery [place] vs. transplanted heart: [place] heart
== END 2024-09-30 14:55 | disposition home or self-care (01) | DRG 603 ==
LOC: ER 16:08 → MEDSURG 16:30
PROVIDERS: Surgery; Admitting Provider Student in an Organized Health Care Education/Training Program; Emergency Provider Family Medicine; PCP Nurse Practitioner Family; Visit Provider Student in an Organized Health Care Education/Training Program
PROC: 0J9N0ZZ Drainage of Right Lower Leg Subcutaneous Tissue and Fascia, Open Approach (ICD-10-PCS; principal; 2024-09-30 10:10)
DX: L03.115 Cellulitis of right lower limb (principal); I96 Gangrene, not elsewhere classified; T63.331A Toxic effect of venom of brown recluse spider, accidental (unintentional), initial encounter; E11.9 Type 2 diabetes mellitus without complications; I10 Essential (primary) hypertension; I25.10 Atherosclerotic heart disease of native coronary artery without angina pectoris; Z95.5 Presence of coronary angioplasty implant and graft; I25.2 Old myocardial infarction; Z79.84 Long term (current) use of oral hypoglycemic drugs; Z79.02 Long term (current) use of antithrombotics/antiplatelets; Z79.82 Long term (current) use of aspirin; N48.6 Induration penis plastica; N52.9 Male erectile dysfunction, unspecified; G89.29 Other chronic pain; K44.9 Diaphragmatic hernia without obstruction or gangrene
CPT/HCPCS: 36415; 36416; 73701; 80053; 82962; 83036; 83605; 85025; 86618; 86666; 86757; 87040; 87070; 87075; 87205; 88304; 88312; 88313; 93971; 94664; 96365; 96372; 99285; J0696; J1100; J1815; J2020; J2405; J2704; J3010; J7030; J9999

== ENCOUNTER → 2024-10-05 13:05 | Outpatient (BNVA) | payer MEDICARE, OTHER, SELFPAY | PROVIDERS: PCP Nurse Practitioner Family; Visit Provider Thoracic Surgery (Cardiothoracic Vascular Surgery) | DX: I96 Gangrene, not elsewhere classified (principal); L97.812 Non-pressure chronic ulcer of other part of right lower leg with fat layer exposed | CPT/HCPCS: 11042; A6248 ==

== ENCOUNTER → 2024-10-10 13:22 | Outpatient (BNVA) | payer MEDICARE, OTHER, SELFPAY | PROVIDERS: PCP Nurse Practitioner Family; Visit Provider Surgery | DX: Z98.890 Other specified postprocedural states (principal); T63.331A Toxic effect of venom of brown recluse spider, accidental (unintentional), initial encounter; X58.XXXA Exposure to other specified factors, initial encounter | CPT/HCPCS: 99213 ==

== ENCOUNTER → 2024-10-12 10:04 | Outpatient (BNVA) | payer MEDICARE, OTHER, SELFPAY | PROVIDERS: PCP Nurse Practitioner Family; Visit Provider Thoracic Surgery (Cardiothoracic Vascular Surgery) | DX: I96 Gangrene, not elsewhere classified (principal); L97.812 Non-pressure chronic ulcer of other part of right lower leg with fat layer exposed | CPT/HCPCS: 11042 ==

== ENCOUNTER → 2024-10-19 10:42 | Outpatient (BNVA) | payer MEDICARE, OTHER, SELFPAY | PROVIDERS: PCP Nurse Practitioner Family; Visit Provider Thoracic Surgery (Cardiothoracic Vascular Surgery) | DX: I96 Gangrene, not elsewhere classified (principal); L97.812 Non-pressure chronic ulcer of other part of right lower leg with fat layer exposed | CPT/HCPCS: 11042; A6210 ==

== ENCOUNTER → 2024-10-26 13:08 | Outpatient (BNVA) | payer MEDICARE, OTHER, SELFPAY | PROVIDERS: PCP Nurse Practitioner Family; Visit Provider Thoracic Surgery (Cardiothoracic Vascular Surgery) | DX: I96 Gangrene, not elsewhere classified (principal); L97.811 Non-pressure chronic ulcer of other part of right lower leg limited to breakdown of skin | CPT/HCPCS: 97597; A6210 ==

== ENCOUNTER → 2024-11-02 10:32 | Outpatient (BNVA) | payer MEDICARE, OTHER, SELFPAY | PROVIDERS: PCP Nurse Practitioner Family; Visit Provider Thoracic Surgery (Cardiothoracic Vascular Surgery) | DX: I96 Gangrene, not elsewhere classified (principal); L97.811 Non-pressure chronic ulcer of other part of right lower leg limited to breakdown of skin | CPT/HCPCS: 97597; A6210 ==

== ENCOUNTER → 2024-11-09 10:07 | Outpatient (BNVA) | payer MEDICARE, OTHER, SELFPAY | PROVIDERS: PCP Nurse Practitioner Family; Visit Provider Thoracic Surgery (Cardiothoracic Vascular Surgery) | DX: I96 Gangrene, not elsewhere classified (principal); L97.811 Non-pressure chronic ulcer of other part of right lower leg limited to breakdown of skin | CPT/HCPCS: 97597; A6210 ==

== ENCOUNTER → 2024-12-18 08:33 | Outpatient (BNVA) | payer MEDICARE, OTHER, SELFPAY | PROVIDERS: PCP Nurse Practitioner Family; Visit Provider Dermatology | DX: L71.8 Other rosacea (principal); D36.14 Benign neoplasm of peripheral nerves and autonomic nervous system of thorax; D23.111 Other benign neoplasm of skin of right upper eyelid, including canthus; D48.5 Neoplasm of uncertain behavior of skin; L57.0 Actinic keratosis | CPT/HCPCS: 10060; 11102; 17000; 99204 ==

== ENCOUNTER → 2025-01-02 15:23 | Outpatient (BNVA) | payer MEDICARE, OTHER, SELFPAY | PROVIDERS: PCP Nurse Practitioner Family; Visit Provider Internal Medicine | DX: R07.89 Other chest pain (principal); I25.10 Atherosclerotic heart disease of native coronary artery without angina pectoris; I10 Essential (primary) hypertension; E11.9 Type 2 diabetes mellitus without complications; Z79.84 Long term (current) use of oral hypoglycemic drugs; Z95.5 Presence of coronary angioplasty implant and graft; Z87.891 Personal history of nicotine dependence; I25.2 Old myocardial infarction | CPT/HCPCS: 99214 ==

== ENCOUNTER → 2025-01-03 12:47 | Outpatient (BNVA) | payer MEDICARE, OTHER, SELFPAY | PROVIDERS: PCP Nurse Practitioner Family; Visit Provider Dermatology | DX: C44.519 Basal cell carcinoma of skin of other part of trunk (principal) | CPT/HCPCS: 11602; 12032 ==